=== PATIENT | female | born 1935 | race Hispanic/Latino ===

== ENCOUNTER → 2019-02-17 | Outpatient (CLI) | payer MEDICARE ==
[~2019-02-17] MED LIST: ASPIR 8181 MG PO; ATORVASTATIN CA20 MG PO; FERROUS SULFAT325 MG PO; HYDROCHLOROTHIA25 MG PO; JARDIANCE PO; LISINOPRIL10 MG PO; METFORMIN HCL500 MG PO; TRAJENTA PO
--- NOTE | 2019-02-17 16:21 | Diagnostic Imaging Report ---
History: Fell out of the bed, back pain Comparison studies: None Technique: Sagittal, coronal and axial T2 , sagittal T1 and IR, axial spin density oblique. Intravenous contrast: None Findings: Number of lumbar vertebral bodies:5 Alignment: Mild kyphotic deformity at the thoracolumbar junction. Preserved lordosis.No scoliosis. Soft tissues: Edematous changes at the right presacral space. Multiple cyst at the right kidney upper pole measuring up to 4 cm. Bilateral adrenal masses measuring up to 4 cm on the right side Paraspinal muscles: Fatty infiltration of the paraspinal musculature secondary to moderate atrophy more significant at the lumbosacral junction.. Lower thoracic cord:Normal in signal and morphology. The tip of the conus is at L1. Cauda equina: No masses. No arachnoiditis. Vertebrae: L1 wedge compression deformity with approximately 40-50% loss of anterior height, without retropulsion or edema, chronic in nature. Obliterated T11-12 intervertebral space with endplate edema.. No acute compression fractures, infection or neoplasm. Degenerative changes: L1-L2: Is degeneration with decreased intervertebral space. Diffuse disc bulge and mild facet hypertrophy results in no significant canal stenosis and moderate bilateral foraminal narrowing.. L2-L3: Disc degeneration with loss of T2 signal. Mild facet hypertrophy without significant canal stenosis or foraminal narrowing. L3-L4: Disc degeneration with loss of T2 signal. Mild bilateral facet hypertrophy and ligamentum flavum thickening results in no significant canal stenosis or foraminal narrowing. L4-L5: Disc degeneration with loss of T2 signal. Asymmetric left disc bulge, moderate facet hypertrophy and ligamentum flavum thickening results in mild canal stenosis and no significant foraminal narrowing. L5-S1: Disc degeneration with loss of T2 signal and decreased intervertebral space. Diffuse disc bulge and mild facet hypertrophy results in no significant canal or, mild right and moderate left foraminal narrowing. Additional findings: Mild degenerative changes of the sacroiliac joints. Edema signal with cortical irregularity at the right sacral ala. IMPRESSION: 1. Edema at the right sacral ala and surrounding soft tissues, concerning for an acute fracture. 2. Chronic compression fracture of L1 vertebral body. 3. Moderate bilateral degenerative foraminal narrowing at L1-L2. Moderate degenerative left foraminal narrowing at L5-S1. 4. No other significant (moderate or severe) canal stenosis or foraminal narrowing. 5. Bilateral adrenal masses, further evaluation with dedicated examination recommended. Signed by: DR Rhett Jones M.D. on 02/17/2019 4:18 PM
== END ==
LOC: MRI 10:41
PROVIDERS: ATTEND Internal Medicine
DX: M54.5 Low back pain (principal); W06.XXXA Fall from bed, initial encounter; Y93.84 Activity, sleeping
CPT/HCPCS: 72148

== ENCOUNTER 2020-08-21 12:59 | Inpatient (IN) | payer MEDICARE ==
[~2020-08-21] VITALS: Ht 162.6 cm; Wt 56.7 kg
[2020-08-21 13:39] LABS: BASOPHILS # (AUTO) 0.1 (0.0-0.1); BASOPHILS % 0.9 % (0.0-1.0); EOSINOPHILS # (AUTO) 0.1 (0.0-0.4); EOSINOPHILS % 2.1 % (0.0-6.0); HEMATOCRIT 30.8 % (34.2-44.1); LYMPHOCYTES # (AUTO) 0.9 (1.0-3.2); LYMPHOCYTES % 13.5 % (18.0-39.1); MEAN CORPUSCULAR HEMOGLOBIN 25.8 pg (28-32); MEAN CORPUSCULAR HGB CONC 29.2 g/dL (31-35); MEAN CORPUSCULAR VOLUME 88.3 fL (81-99); MONOCYTES # (AUTO) 0.5 (0.2-0.8); MONOCYTES % 7.5 % (4.4-11.3); NEUTROPHILS # (AUTO) 5.1 (2.1-6.9); NEUTROPHILS % 75.6 % (38.7-80.0); PLATELET COUNT 182 x10e3/uL (140-360); RED BLOOD COUNT 3.49 x10e6/uL (3.6-5.1); RED CELL DISTRIBUTION WIDTH 16.3 % (11.7-14.4)
[2020-08-21] MEDS ORDERED: DIATRIZOATE MEGL/DIATRIZOA SOD 30 ML BTL PO ONE (13:50)
[2020-08-21 13:56] LABS: INR 1.24; PROTHROMBIN TIME 16.4 seconds (11.9-14.5)
[2020-08-21 13:57] LABS: PARTIAL THROMBOPLASTIN TIME 28.8 seconds (23.8-35.5)
[2020-08-21 14:04] LABS: ALBUMIN 3.4 g/dL (3.5-5.0); ALBUMIN/GLOBULIN RATIO 1.2 (0.8-2.0); ANION GAP 13.9 mmol/L (8-16); CALCIUM 8.6 mg/dL (8.4-10.2); CREATININE, SERUM 1.3 mg/dL (0.57-1.11); POTASSIUM 4.9 mmol/L (3.5-5.1)
[2020-08-21 14:10] LABS: CREATINE KINASE MB 1.5 ng/mL (0-5.0)
[2020-08-21 14:24] LABS: CLARITY,URINE CLEAR (CLEAR); COLOR,URINE YELLOW (YELLOW); KETONES,URINE NEGATIVE (NEGATIVE); LEUKOCYTE ESTERASE ,URINE TRACE (NEGATIVE); NITRITE,URINE NEGATIVE (NEGATIVE); PROTEIN,URINE DIPSTICK 1+ (NEGATIVE); URINE UROBILINOGEN 1 mg/dL (0.2 - 1)
[2020-08-21 14:54] LABS: BACTERIA,URINE RARE /HPF; EPITHELIAL CELLS,URINE MODERATE /LPF; RBC,URINE 0-5 /HPF (0-5)
[2020-08-21] MEDS ORDERED: FUROSEMIDE INJ 10 MG/ML 4 ML VIAL IV ONE (18:15)
[2020-08-21] MEDS: CEFTRIAXONE SOD 1 GM in SODIUM CHLORIDE 0.9% 50ML 50 ML IV SCH (19:55)
[2020-08-21] MEDS: FUROSEMIDE INJ 10 MG/ML 4 ML VIAL IV SCH (19:55)
[2020-08-21 20:11] VITALS: BP 112/99
[2020-08-21 20:30] VITALS: BP 112/99
[2020-08-21 21:00] VITALS: BP 112/99
[2020-08-22] VITALS (8 sets, daily range): BP systolic 107–126; BP diastolic 56–85
[2020-08-22 01:25] LABS: CREATINE KINASE MB 1.3 ng/mL (0-5.0)
[2020-08-22] MEDS: FUROSEMIDE INJ 10 MG/ML 4 ML VIAL IV SCH ×3 (01:31→22:15)
[2020-08-22] MEDS ORDERED: OXYBUTYNIN CHLOR5 MG PO (04:18)
[2020-08-22] MEDS ORDERED: CARVEDILOL12.5 MG PO (04:18)
[2020-08-22] MEDS ORDERED: LASIX40 MG PO (04:18)
[2020-08-22 06:05] LABS: BASOPHILS # (AUTO) 0.1 (0.0-0.1); BASOPHILS % 0.9 % (0.0-1.0); EOSINOPHILS # (AUTO) 0.2 (0.0-0.4); EOSINOPHILS % 2.1 % (0.0-6.0); HEMATOCRIT 28.4 % (34.2-44.1); HEMOGLOBIN 8.6 g/dL (12.0-16.0); LYMPHOCYTES # (AUTO) 0.9 (1.0-3.2); LYMPHOCYTES % 12.7 % (18.0-39.1); MEAN CORPUSCULAR HEMOGLOBIN 26.6 pg (28-32); MEAN CORPUSCULAR HGB CONC 30.3 g/dL (31-35); MEAN CORPUSCULAR VOLUME 87.9 fL (81-99); MONOCYTES # (AUTO) 0.6 (0.2-0.8); MONOCYTES % 8.1 % (4.4-11.3); NEUTROPHILS # (AUTO) 5.3 (2.1-6.9); NEUTROPHILS % 75.9 % (38.7-80.0); PLATELET COUNT 173 x10e3/uL (140-360); RED BLOOD COUNT 3.23 x10e6/uL (3.6-5.1); RED CELL DISTRIBUTION WIDTH 16.2 % (11.7-14.4)
[2020-08-22 06:44] LABS: ALBUMIN 3.2 g/dL (3.5-5.0); ALBUMIN/GLOBULIN RATIO 1.1 (0.8-2.0); ALKALINE PHOSPHATASE 47 IU/L (40-150); ANION GAP 13.3 mmol/L (8-16); BLOOD UREA NITROGEN 35 mg/dL (7-26); BUN/CREATININE RATIO 27 (6-25); CALCIUM 8.5 mg/dL (8.4-10.2); CARBON DIOXIDE 23 mmol/L (22-29); CHLORIDE 111 mmol/L (98-107); EST GLOMERULAR FILTRATION RATE 39 ML/MIN (60-); GLUCOSE 137 mg/dL (74-118); POTASSIUM 4.3 mmol/L (3.5-5.1); SODIUM 143 mmol/L (136-145)
[2020-08-22 06:45] LABS: ALANINE AMINOTRANSFERASE < 6 IU/L (0-55)
[2020-08-22 07:14] LABS: CREATINE KINASE MB 1.3 ng/mL (0-5.0)
[2020-08-22] MEDS ORDERED: ACETAMINOPHEN 325 MG TAB PO PRN (10:00)
[2020-08-22] MEDS ORDERED: HYDRALAZINE HCL 20 MG/ML VIAL IV PRN (10:00)
[2020-08-22] MEDS ORDERED: ONDANSETRON HCL INJ 2MG/ML 2ML 2 MG/ML VIAL IV PRN (10:00)
[2020-08-22] MEDS ORDERED: DEXTROSE 50% SYRINGE 50 ML IV PRN (10:00)
[2020-08-22] MEDS: INSULIN LISPRO 100 UNIT/1 ML 3ML VIAL SQ SCH ×3 (11:30→21:00)
[2020-08-22 11:45] LABS: CREATINE KINASE MB 1.2 ng/mL (0-5.0)
[2020-08-22] MEDS ORDERED: SODIUM CHLORIDE 0.9% 50ML 50 ML ONE (16:31)
[2020-08-22] MEDS ORDERED: SODIUM CHLORIDE 0.9% 250ML 250 ML ONE (16:31)
[2020-08-22] MEDS ORDERED: CEFTRIAXONE SOD 1 GM VIAL ONE (16:31)
[2020-08-22 17:00] LABS: ANION GAP 12.4 mmol/L (8-16); CALCIUM 8.7 mg/dL (8.4-10.2); CREATININE, SERUM 1.41 mg/dL (0.57-1.11); POTASSIUM 4.4 mmol/L (3.5-5.1)
[2020-08-22] MEDS ORDERED: OXYBUTYNIN CHLORIDE 5 MG TAB PO SCH (17:00)
[2020-08-22] MEDS ORDERED: CARVEDILOL 12.5 MG TAB PO SCH (17:00)
[2020-08-22] MEDS: CEFTRIAXONE SOD 1 GM in SODIUM CHLORIDE 0.9% 50ML 50 ML IV SCH (17:46)
[2020-08-22] MEDS ORDERED: ATORVASTATIN 20 MG TAB PO SCH (21:00)
[2020-08-22] MEDS ORDERED: ASPIRIN 81 MG CHEW TAB PO SCH (21:00)
[2020-08-23] VITALS: BP 105/65
[2020-08-23 04:00] VITALS: BP 93/68
[2020-08-23 05:38] LABS: BASOPHILS # (AUTO) 0.1 (0.0-0.1); BASOPHILS % 0.9 % (0.0-1.0); EOSINOPHILS # (AUTO) 0.2 (0.0-0.4); EOSINOPHILS % 3.1 % (0.0-6.0); HEMATOCRIT 27.7 % (34.2-44.1); HEMOGLOBIN 8.4 g/dL (12.0-16.0); LYMPHOCYTES # (AUTO) 1.1 (1.0-3.2); LYMPHOCYTES % 20.2 % (18.0-39.1); MEAN CORPUSCULAR HEMOGLOBIN 26.5 pg (28-32); MEAN CORPUSCULAR HGB CONC 30.3 g/dL (31-35); MEAN CORPUSCULAR VOLUME 87.4 fL (81-99); MONOCYTES # (AUTO) 0.6 (0.2-0.8); MONOCYTES % 10.7 % (4.4-11.3); NEUTROPHILS # (AUTO) 3.5 (2.1-6.9); NEUTROPHILS % 64.9 % (38.7-80.0); PLATELET COUNT 165 x10e3/uL (140-360); RED BLOOD COUNT 3.17 x10e6/uL (3.6-5.1)
[2020-08-23 06:02] LABS: ALBUMIN 2.9 g/dL (3.5-5.0); ALKALINE PHOSPHATASE 54 IU/L (40-150); ANION GAP 13.1 mmol/L (8-16); BLOOD UREA NITROGEN 34 mg/dL (7-26); BUN/CREATININE RATIO 22 (6-25); CALCIUM 8.3 mg/dL (8.4-10.2); CARBON DIOXIDE 26 mmol/L (22-29); CHLORIDE 109 mmol/L (98-107); CREATININE, SERUM 1.53 mg/dL (0.57-1.11); EST GLOMERULAR FILTRATION RATE 32 ML/MIN (60-); GLUCOSE 124 mg/dL (74-118); POTASSIUM 4.1 mmol/L (3.5-5.1); SODIUM 144 mmol/L (136-145)
[2020-08-23 06:17] LABS: ALANINE AMINOTRANSFERASE < 6 IU/L (0-55)
[2020-08-23] MEDS: INSULIN LISPRO 100 UNIT/1 ML 3ML VIAL SQ SCH ×2 (07:30→11:30)
[2020-08-23 07:33] VITALS: BP 107/53
[2020-08-23 07:42] VITALS: BP 107/53
[2020-08-23] MEDS ORDERED: LISINOPRIL 10 MG TAB PO SCH (09:00)
[2020-08-23] MEDS ORDERED: FERROUS SULFATE 325 MG TAB PO SCH (09:00)
[2020-08-23] MEDS ORDERED: ASCORBIC ACID 500 MG TAB PO SCH (09:00)
[2020-08-23] MEDS: FUROSEMIDE INJ 10 MG/ML 4 ML VIAL IV SCH (10:30)
[2020-08-23 11:39] VITALS: BP 134/82
[2020-08-23] MEDS ORDERED: HEPARIN SOD (PORCINE) 1000 UNIT/ML 30ML ONE (11:51)
[2020-08-23] MEDS ORDERED: SODIUM CHLORIDE 0.9% 1000ML 1,000 ML ONE (11:52)
[2020-08-23] MEDS ORDERED: FENTANYL CITRATE/PF 100MCG/2 ML INJ ONE (11:52)
[2020-08-23] MEDS ORDERED: IOPAMIDOL 370 MG/ML 200 ML INFUS..BTL INJ ONE (11:52)
[2020-08-23] MEDS ORDERED: HEPARIN SOD/SOD CHLORIDE 2,000 ML ONE (11:52)
[2020-08-23] MEDS ORDERED: LIDOCAINE HCL 2% LOCAL 20 ML VIAL ONE (11:52)
[2020-08-23] MEDS ORDERED: MIDAZOLAM HCL 2 MG/2 ML VIAL ONE (11:52)
[2020-08-23] MEDS ORDERED: FLUMAZENIL 0.5MG/ 5ML VIAL ONE (12:09)
[2020-08-23] MEDS ORDERED: NALOXONE HCL INJ 0.4 MG/ML AMP ONE (12:09)
[2020-08-23] MEDS ORDERED: CEFUROXIME250 MG PO (12:54)
[2020-08-23] MEDS ORDERED: ACETAMINOPHEN325 M1 PO (12:54)
[2020-08-23] MEDS ORDERED: ASCORBIC ACID500 MG PO (12:54)
[2020-08-23] MEDS ORDERED: LISINOPRIL10 MG PO (12:54)
[2020-08-23] MEDS ORDERED: ONDANSETRON HCL 4 MG ORAL DISINTEGRATING TAB PO PRN (14:15)
== END 2020-08-23 16:22 | disposition home or self-care (01) | DRG 286 ==
LOC: ER 13:15 → ERHOLD 18:21 → MED/SURG2 20:17
PROVIDERS: ADMIT Internal Medicine; ATTEND Internal Medicine
PROC: 4A023N7 Measurement of Cardiac Sampling and Pressure, Left Heart, Percutaneous Approach (ICD-10-PCS; principal; 2020-08-23)
PROC: B2111ZZ Fluoroscopy of Multiple Coronary Arteries using Low Osmolar Contrast (ICD-10-PCS; 2020-08-23)
PROC: B2151ZZ Fluoroscopy of Left Heart using Low Osmolar Contrast (ICD-10-PCS; 2020-08-23)
DX: I13.0 Hypertensive heart and chronic kidney disease with heart failure and stage 1 through stage 4 chronic kidney disease, or unspecified chronic kidney disease (principal); I50.23 Acute on chronic systolic (congestive) heart failure; N39.0 Urinary tract infection, site not specified; I50.9 Heart failure, unspecified; I11.0 Hypertensive heart disease with heart failure; N18.9 Chronic kidney disease, unspecified; B96.1 Klebsiella pneumoniae [K. pneumoniae] as the cause of diseases classified elsewhere; Z86.718 Personal history of other venous thrombosis and embolism; Z79.01 Long term (current) use of anticoagulants; E78.5 Hyperlipidemia, unspecified
CPT/HCPCS: 36415; 71045; 74176; 80048; 80053; 81001; 82550; 82553; 82948; 83735; 83880; 84484; 85025; 85610; 85730; 87086; 87186; 93005; 93306; 93458; 93970; 99152; 99153; 99285; C1760; C1769; C1887; J0696; J1644; J1940; J2001; J2250; J2310; J3010; J7030; J7050; Q9967; U0002

== ENCOUNTER 2020-09-26 13:13 | Observation (INO) | payer MEDICARE ==
[~2020-09-26] VITALS: Ht 162.6 cm; Wt 56.7 kg
[~2020-09-26 13:13] MED LIST changes: +ACETAMINOPHEN325 M1 PO; +ASCORBIC ACID500 MG PO; +CARVEDILOL12.5 MG PO; +CEFUROXIME250 MG PO; +LASIX40 MG PO; +OXYBUTYNIN CHLOR5 MG PO
[2020-09-26 17:39] LABS: BASOPHILS # (AUTO) 0.1 (0.0-0.1); BASOPHILS % 1.1 % (0.0-1.0); EOSINOPHILS # (AUTO) 0.1 (0.0-0.4); EOSINOPHILS % 2.1 % (0.0-6.0); HEMATOCRIT 31.7 % (34.2-44.1); HEMOGLOBIN 9.5 g/dL (12.0-16.0); LYMPHOCYTES % 16.6 % (18.0-39.1); MEAN CORPUSCULAR HEMOGLOBIN 26.5 pg (28-32); MEAN CORPUSCULAR VOLUME 88.3 fL (81-99); MONOCYTES # (AUTO) 0.5 (0.2-0.8); MONOCYTES % 8.4 % (4.4-11.3); NEUTROPHILS # (AUTO) 4.5 (2.1-6.9); NEUTROPHILS % 71.6 % (38.7-80.0); PLATELET COUNT 151 x10e3/uL (140-360); RED BLOOD COUNT 3.59 x10e6/uL (3.6-5.1); RED CELL DISTRIBUTION WIDTH 19.9 % (11.7-14.4)
[2020-09-26 17:54] LABS: ALBUMIN 3.5 g/dL (3.5-5.0); ALBUMIN/GLOBULIN RATIO 1.1 (0.8-2.0); ANION GAP 14.8 mmol/L (8-16); CALCIUM 8.9 mg/dL (8.4-10.2); CREATININE, SERUM 1.44 mg/dL (0.57-1.11); POTASSIUM 3.8 mmol/L (3.5-5.1)
[2020-09-26 19:36] LABS: CREATINE KINASE MB 1.2 ng/mL (0-5.0)
[2020-09-26] MEDS ORDERED: ONDANSETRON HCL INJ 2MG/ML 2ML 2 MG/ML VIAL IV PRN (20:30)
[2020-09-26] MEDS ORDERED: TEMAZEPAM 7.5 MG CAP PO PRN (20:30)
[2020-09-26] MEDS ORDERED: HYDRALAZINE HCL 20 MG/ML VIAL IV PRN (20:30)
[2020-09-26] MEDS ORDERED: ACETAMINOPHEN 325 MG TAB PO PRN (20:30)
[2020-09-26] MEDS ORDERED: POLYETHYLENE GLYCOL 3350 17 GM PACK PO PRN (20:30)
[2020-09-26 21:00] VITALS: BP 138/71
[2020-09-26 21:06] VITALS: BP 138/71
[2020-09-26 21:09] VITALS: BP 138/71
[2020-09-26] MEDS ORDERED: METFORMIN HCL500 MG PO (22:38)
[2020-09-27 02:19] LABS: CREATINE KINASE MB 1.1 ng/mL (0-5.0)
[2020-09-27 04:32] VITALS: BP 123/70
[2020-09-27 04:53] LABS: BASOPHILS # (AUTO) 0.1 (0.0-0.1); BASOPHILS % 0.8 % (0.0-1.0); EOSINOPHILS # (AUTO) 0.2 (0.0-0.4); EOSINOPHILS % 3.7 % (0.0-6.0); HEMATOCRIT 30.8 % (34.2-44.1); HEMOGLOBIN 9.4 g/dL (12.0-16.0); LYMPHOCYTES % 15.9 % (18.0-39.1); MEAN CORPUSCULAR HEMOGLOBIN 26.8 pg (28-32); MEAN CORPUSCULAR HGB CONC 30.5 g/dL (31-35); MEAN CORPUSCULAR VOLUME 87.7 fL (81-99); MONOCYTES # (AUTO) 0.6 (0.2-0.8); MONOCYTES % 9.6 % (4.4-11.3); NEUTROPHILS # (AUTO) 4.3 (2.1-6.9); NEUTROPHILS % 69.8 % (38.7-80.0); PLATELET COUNT 153 x10e3/uL (140-360); RED BLOOD COUNT 3.51 x10e6/uL (3.6-5.1); RED CELL DISTRIBUTION WIDTH 19.9 % (11.7-14.4)
[2020-09-27 05:14] LABS: ANION GAP 14.6 mmol/L (8-16); CALCIUM 8.7 mg/dL (8.4-10.2); CHOL/HDL RATIO 2.9 (3.0-3.6); CREATININE, SERUM 1.28 mg/dL (0.57-1.11); MAGNESIUM 2.1 MG/DL (1.3-2.1); PHOSPHORUS 3.6 MG/DL (2.3-4.7); POTASSIUM 3.6 mmol/L (3.5-5.1)
[2020-09-27 05:33] LABS: THYROID STIMULATING HORMONE 1.949 uIU/mL (0.350-4.940)
[2020-09-27 06:35] LABS: CLARITY,URINE CLEAR (CLEAR); COLOR,URINE YELLOW (YELLOW); LEUKOCYTE ESTERASE ,URINE NEGATIVE (NEGATIVE)
[2020-09-27 06:36] LABS: KETONES,URINE NEGATIVE (NEGATIVE); NITRITE,URINE POSITIVE (NEGATIVE); PROTEIN,URINE DIPSTICK NEGATIVE (NEGATIVE); URINE UROBILINOGEN 0.2 mg/dL (0.2 - 1)
[2020-09-27 07:04] LABS: BACTERIA,URINE MANY /HPF; EPITHELIAL CELLS,URINE RARE /LPF
[2020-09-27 07:30] VITALS: BP 137/72
[2020-09-27 07:52] VITALS: BP 137/72
[2020-09-27] MEDS ORDERED: FERROUS SULFATE 325 MG TAB PO SCH (08:00)
[2020-09-27] MEDS: FUROSEMIDE INJ 10 MG/ML 4 ML VIAL IV SCH ×2 (08:13→16:37)
[2020-09-27] MEDS: CARVEDILOL 12.5 MG TAB PO SCH ×2 (08:13→16:37)
[2020-09-27] MEDS: DOCUSATE SODIUM 100 MG CAP PO SCH ×2 (08:13→16:37)
[2020-09-27] MEDS: OXYBUTYNIN CHLORIDE 5 MG TAB PO SCH ×2 (08:14→16:37)
[2020-09-27] MEDS ORDERED: TRAJENTA PO SCH (09:00)
[2020-09-27] MEDS ORDERED: FAMOTIDINE 20 MG TAB PO SCH (09:00)
[2020-09-27] MEDS ORDERED: METFORMIN HCL 500 MG TAB PO SCH (09:00)
[2020-09-27] MEDS ORDERED: ASCORBIC ACID 500 MG TAB PO SCH (09:00)
[2020-09-27] MEDS ORDERED: ONDANSETRON HCL 4 MG ORAL DISINTEGRATING TAB PO PRN (10:30)
[2020-09-27 11:00] VITALS: BP 131/67
[2020-09-27 12:49] LABS: CREATINE KINASE MB 1.2 ng/mL (0-5.0)
[2020-09-27] MEDS ORDERED: DIATRIZOATE MEGL/DIATRIZOA SOD 30 ML BTL PO ONE (15:23)
[2020-09-27 16:00] VITALS: BP 120/88
[2020-09-27] MEDS ORDERED: TEMAZEPAM 15 MG CAP PO PRN (17:45)
[2020-09-27] MEDS ORDERED: ASPIRIN 81 MG CHEW TAB PO SCH (21:00)
[2020-09-27] MEDS ORDERED: ATORVASTATIN 20 MG TAB PO SCH (21:00)
== END 2020-09-27 18:53 | disposition home or self-care (01) ==
LOC: ER 14:30 → ERHOLD 19:09 → IMCU 20:45 → MED/SURG 09-27 17:55
PROVIDERS: ADMIT Internal Medicine; ATTEND Internal Medicine
DX: I13.0 Hypertensive heart and chronic kidney disease with heart failure and stage 1 through stage 4 chronic kidney disease, or unspecified chronic kidney disease (principal); E11.22 Type 2 diabetes mellitus with diabetic chronic kidney disease; N18.30 Chronic kidney disease, stage 3 unspecified; I50.23 Acute on chronic systolic (congestive) heart failure; N17.9 Acute kidney failure, unspecified; E78.5 Hyperlipidemia, unspecified; E11.65 Type 2 diabetes mellitus with hyperglycemia; I25.10 Atherosclerotic heart disease of native coronary artery without angina pectoris; Z86.718 Personal history of other venous thrombosis and embolism; R11.2 Nausea with vomiting, unspecified; R10.9 Unspecified abdominal pain; Z20.822 Contact with and (suspected) exposure to COVID-19; Z79.82 Long term (current) use of aspirin; Z79.84 Long term (current) use of oral hypoglycemic drugs
CPT/HCPCS: 36415; 71045; 74018; 74176; 80048; 80053; 80061; 81001; 82550; 82553; 82948; 83036; 83690; 83735; 83880; 84100; 84443; 84484; 85025; 93005; 93306; 99284; G0378; J1940; U0002

== ENCOUNTER 2021-06-30 10:35 | Emergency (ER) | payer MEDICARE ==
[~2021-06-30] VITALS: Ht 162.6 cm; Wt 56.7 kg
[2021-06-30 11:11] LABS: BASOPHILS # (AUTO) 0.1 (0.0-0.1); BASOPHILS % 1.1 % (0.0-1.0); EOSINOPHILS # (AUTO) 0.1 (0.0-0.4); EOSINOPHILS % 1.7 % (0.0-6.0); HEMATOCRIT 35.6 % (34.2-44.1); HEMOGLOBIN 10.6 g/dL (12.0-16.0); LYMPHOCYTES # (AUTO) 0.6 (1.0-3.2); LYMPHOCYTES % 11.8 % (18.0-39.1); MEAN CORPUSCULAR HEMOGLOBIN 26.6 pg (28-32); MEAN CORPUSCULAR HGB CONC 29.8 g/dL (31-35); MEAN CORPUSCULAR VOLUME 89.2 fL (81-99); MONOCYTES # (AUTO) 0.4 (0.2-0.8); MONOCYTES % 6.8 % (4.4-11.3); NEUTROPHILS # (AUTO) 4.1 (2.1-6.9); NEUTROPHILS % 78.2 % (38.7-80.0); PLATELET COUNT 163 x10e3/uL (140-360); RED BLOOD COUNT 3.99 x10e6/uL (3.6-5.1); RED CELL DISTRIBUTION WIDTH 17.3 % (11.7-14.4)
[2021-06-30] MEDS: FUROSEMIDE INJ 10 MG/ML 4 ML VIAL IV NR (11:27)
[2021-06-30 11:32] LABS: ALBUMIN 3.3 g/dL (3.5-5.0); ALBUMIN/GLOBULIN RATIO 0.8 (0.8-2.0); ANION GAP 12.6 mmol/L (8-16); CALCIUM 9.2 mg/dL (8.4-10.2); CREATININE, SERUM 1.92 mg/dL (0.57-1.11); POTASSIUM 3.6 mmol/L (3.5-5.1)
== END 2021-06-30 14:19 | disposition home or self-care (01) ==
LOC: ER 10:56
DX: I11.0 Hypertensive heart disease with heart failure (principal); I50.9 Heart failure, unspecified; N28.9 Disorder of kidney and ureter, unspecified
CPT/HCPCS: 36415; 71045; 80053; 83880; 84484; 85025; 99284; J1940

== ENCOUNTER 2021-07-02 21:08 | Inpatient (IN) | payer MEDICARE ==
[~2021-07-02] VITALS: Ht 162.6 cm; Wt 56.7 kg
[2021-07-02 22:01] LABS: BASOPHILS # (AUTO) 0.1 (0.0-0.1); BASOPHILS % 1.4 % (0.0-1.0); EOSINOPHILS # (AUTO) 0.1 (0.0-0.4); EOSINOPHILS % 2.3 % (0.0-6.0); HEMATOCRIT 35.2 % (34.2-44.1); HEMOGLOBIN 10.6 g/dL (12.0-16.0); LYMPHOCYTES # (AUTO) 0.8 (1.0-3.2); LYMPHOCYTES % 15.6 % (18.0-39.1); MEAN CORPUSCULAR HEMOGLOBIN 27.1 pg (28-32); MEAN CORPUSCULAR HGB CONC 30.1 g/dL (31-35); MONOCYTES # (AUTO) 0.5 (0.2-0.8); MONOCYTES % 9.7 % (4.4-11.3); NEUTROPHILS # (AUTO) 3.4 (2.1-6.9); NEUTROPHILS % 70.6 % (38.7-80.0); PLATELET COUNT 159 x10e3/uL (140-360); RED BLOOD COUNT 3.91 x10e6/uL (3.6-5.1); RED CELL DISTRIBUTION WIDTH 17.5 % (11.7-14.4)
[2021-07-02 22:19] LABS: ALBUMIN 3.2 g/dL (3.5-5.0); ALBUMIN/GLOBULIN RATIO 0.8 (0.8-2.0); ANION GAP 13.1 mmol/L (8-16); CALCIUM 9.1 mg/dL (8.4-10.2); CREATININE, SERUM 2.01 mg/dL (0.57-1.11); POTASSIUM 4.1 mmol/L (3.5-5.1)
[2021-07-02 22:25] LABS: CREATINE KINASE MB 1.1 ng/mL (0-5.0)
[2021-07-02] MEDS ORDERED: ONDANSETRON HCL INJ 2MG/ML 2ML 2 MG/ML VIAL IV PRN (23:45)
[2021-07-02] MEDS ORDERED: DEXTROSE 50% SYRINGE 50 ML IV PRN (23:45)
[2021-07-03] VITALS: BP 126/68
[2021-07-03 04:00] VITALS: BP 118/60
[2021-07-03 05:48] LABS: BASOPHILS # (AUTO) 0.1 (0.0-0.1); BASOPHILS % 1.4 % (0.0-1.0); EOSINOPHILS # (AUTO) 0.1 (0.0-0.4); EOSINOPHILS % 2.6 % (0.0-6.0); HEMOGLOBIN 10.4 g/dL (12.0-16.0); LYMPHOCYTES # (AUTO) 0.8 (1.0-3.2); LYMPHOCYTES % 15.1 % (18.0-39.1); MEAN CORPUSCULAR HEMOGLOBIN 26.9 pg (28-32); MEAN CORPUSCULAR HGB CONC 30.6 g/dL (31-35); MEAN CORPUSCULAR VOLUME 88.1 fL (81-99); MONOCYTES # (AUTO) 0.5 (0.2-0.8); MONOCYTES % 10.2 % (4.4-11.3); NEUTROPHILS # (AUTO) 3.5 (2.1-6.9); NEUTROPHILS % 70.1 % (38.7-80.0); PLATELET COUNT 163 x10e3/uL (140-360); RED BLOOD COUNT 3.86 x10e6/uL (3.6-5.1); RED CELL DISTRIBUTION WIDTH 17.4 % (11.7-14.4)
[2021-07-03 06:02] LABS: INR 1.22; PROTHROMBIN TIME 16.4 seconds (11.9-14.5)
[2021-07-03 06:03] LABS: PARTIAL THROMBOPLASTIN TIME 29.8 seconds (23.8-35.5)
[2021-07-03 06:24] LABS: ALBUMIN 3.1 g/dL (3.5-5.0); ALBUMIN/GLOBULIN RATIO 0.8 (0.8-2.0); CALCIUM 8.9 mg/dL (8.4-10.2); CREATININE, SERUM 1.87 mg/dL (0.57-1.11)
[2021-07-03] MEDS: INSULIN REGULAR, HUMAN 100 UNIT/1 ML SQ SCH ×4 (07:30→21:00)
[2021-07-03] MEDS: CARVEDILOL 12.5 MG TAB PO SCH ×2 (09:06→17:29)
[2021-07-03] MEDS: OXYBUTYNIN CHLORIDE 5 MG TAB PO SCH ×2 (09:07→17:28)
[2021-07-03] MEDS: FUROSEMIDE 40 MG TAB PO SCH ×2 (09:07→17:28)
[2021-07-03 09:10] VITALS: BP 107/73
[2021-07-03 09:11] VITALS: BP 107/73
[2021-07-03 12:25] VITALS: BP 123/69
[2021-07-03] MEDS ORDERED: ALBUMIN 25% 12.5GM 50ML 150 ML IV ONE (15:59)
[2021-07-03 16:57] LABS: BODY FLUID TYPE PERITONEAL
[2021-07-03 16:58] LABS: BODY FLUID APPEARANCE TURBID; BODY FLUID COLOR STRAW
[2021-07-03 18:10] LABS: RBC,BODY FLUID 4000 cells/uL; WBC,BODY FLUID 801 cells/uL
[2021-07-03 20:00] VITALS: BP 107/62
[2021-07-03 20:46] LABS: LYMPHOCYTES,BODY FLUID 41 %; MONO/MACROPHG,BODY FLUID 19 %; OTHER CELLS,BODY FLUID 40 %
[2021-07-03 23:08] LABS: % IRON SATURATION 7 % (15-50); IRON 33 ug/dL (50-170); TOTAL IRON BINDING CAPACITY 483 ug/dL (261-478); TRANSFERRIN 345 mg/dL (180-382)
[2021-07-04] VITALS (9 sets, daily range): BP systolic 94–103; BP diastolic 48–83
[2021-07-04] MEDS ORDERED: CYANOCOBALAMIN INJ 1,000 MCG/ML VIAL IM ONE
[2021-07-04 06:12] LABS: BASOPHILS % 0.9 % (0.0-1.0); EOSINOPHILS # (AUTO) 0.1 (0.0-0.4); EOSINOPHILS % 1.6 % (0.0-6.0); HEMATOCRIT 34.3 % (34.2-44.1); HEMOGLOBIN 10.6 g/dL (12.0-16.0); LYMPHOCYTES # (AUTO) 0.7 (1.0-3.2); LYMPHOCYTES % 16.7 % (18.0-39.1); MEAN CORPUSCULAR HGB CONC 30.9 g/dL (31-35); MEAN CORPUSCULAR VOLUME 87.5 fL (81-99); MONOCYTES # (AUTO) 0.5 (0.2-0.8); MONOCYTES % 11.1 % (4.4-11.3); NEUTROPHILS % 69.5 % (38.7-80.0); PLATELET COUNT 152 x10e3/uL (140-360); RED BLOOD COUNT 3.92 x10e6/uL (3.6-5.1); RED CELL DISTRIBUTION WIDTH 17.4 % (11.7-14.4)
[2021-07-04 06:33] LABS: ANION GAP 7.9 mmol/L (8-16); CALCIUM 8.5 mg/dL (8.4-10.2); CREATININE, SERUM 1.58 mg/dL (0.57-1.11); MAGNESIUM 2.6 MG/DL (1.3-2.1); PHOSPHORUS 3.4 MG/DL (2.3-4.7); POTASSIUM 3.9 mmol/L (3.5-5.1)
[2021-07-04] MEDS: INSULIN REGULAR, HUMAN 100 UNIT/1 ML SQ SCH ×4 (07:30→20:40)
[2021-07-04] MEDS ORDERED: SODIUM CHLORIDE 0.9% 250ML 250 ML ONE (08:10)
[2021-07-04] MEDS: CARVEDILOL 12.5 MG TAB PO SCH ×2 (09:00→17:00)
[2021-07-04] MEDS: IRON SUCROSE 100 MG in SODIUM CHLORIDE 0.9% 100 ML 100 ML IV SCH (10:01)
[2021-07-04] MEDS: CYANOCOBALAMIN INJ 1,000 MCG/ML VIAL IM SCH (10:01)
[2021-07-04] MEDS: OXYBUTYNIN CHLORIDE 5 MG TAB PO SCH ×2 (10:02→17:01)
[2021-07-04] MEDS: FUROSEMIDE 40 MG TAB PO SCH (10:02)
[2021-07-04] MEDS ORDERED: DEXTROSE 5% 1,000 ML IV SCH (11:30)
[2021-07-04 15:23] LABS: NEUTROPHILS,BODY FLUID 2 %
[2021-07-05] VITALS (8 sets, daily range): BP systolic 89–139; BP diastolic 53–73
[2021-07-05] MEDS: DEXTROSE 5% 1,000 ML IV SCH ×2 (00:35→10:53)
[2021-07-05 05:03] LABS: BASOPHILS # (AUTO) 0.1 (0.0-0.1); BASOPHILS % 1.3 % (0.0-1.0); EOSINOPHILS # (AUTO) 0.1 (0.0-0.4); EOSINOPHILS % 2.2 % (0.0-6.0); HEMATOCRIT 33.9 % (34.2-44.1); HEMOGLOBIN 10.2 g/dL (12.0-16.0); LYMPHOCYTES # (AUTO) 0.8 (1.0-3.2); LYMPHOCYTES % 17.4 % (18.0-39.1); MEAN CORPUSCULAR HEMOGLOBIN 26.6 pg (28-32); MEAN CORPUSCULAR HGB CONC 30.1 g/dL (31-35); MEAN CORPUSCULAR VOLUME 88.5 fL (81-99); MONOCYTES # (AUTO) 0.5 (0.2-0.8); MONOCYTES % 10.7 % (4.4-11.3); NEUTROPHILS # (AUTO) 3.1 (2.1-6.9); NEUTROPHILS % 68.2 % (38.7-80.0); PLATELET COUNT 156 x10e3/uL (140-360); RED BLOOD COUNT 3.83 x10e6/uL (3.6-5.1); RED CELL DISTRIBUTION WIDTH 17.2 % (11.7-14.4)
[2021-07-05 05:16] LABS: ALBUMIN 2.7 g/dL (3.5-5.0); ANION GAP 8.9 mmol/L (8-16); CALCIUM 8.3 mg/dL (8.4-10.2); CREATININE, SERUM 1.48 mg/dL (0.57-1.11); POTASSIUM 3.9 mmol/L (3.5-5.1)
[2021-07-05 06:31] LABS: MAGNESIUM 2.2 MG/DL (1.3-2.1); PHOSPHORUS 3.4 MG/DL (2.3-4.7)
[2021-07-05] MEDS: CYANOCOBALAMIN INJ 1,000 MCG/ML VIAL IM SCH (07:59)
[2021-07-05] MEDS: OXYBUTYNIN CHLORIDE 5 MG TAB PO SCH ×2 (07:59→17:42)
[2021-07-05] MEDS: IRON SUCROSE 100 MG in SODIUM CHLORIDE 0.9% 100 ML 100 ML IV SCH (07:59)
[2021-07-05] MEDS: CARVEDILOL 12.5 MG TAB PO SCH ×2 (09:00→17:42)
[2021-07-05] MEDS: INSULIN REGULAR, HUMAN 100 UNIT/1 ML SQ SCH ×4 (09:31→21:00)
[2021-07-05] MEDS ORDERED: ALBUMIN 25% 25GM 100ML 0.25 GM/ML BTL IV ONE (09:45)
[2021-07-05] MEDS ORDERED: ALBUMIN 25% 12.5GM 50ML 200 ML IV ONE (11:00)
[2021-07-05] MEDS: HYDROCODONE/APAP 5MG-325MG TAB PO PRN (22:19)
[2021-07-06] VITALS (8 sets, daily range): BP systolic 95–109; BP diastolic 52–71
[2021-07-06 05:03] LABS: BASOPHILS # (AUTO) 0.1 (0.0-0.1); BASOPHILS % 1.3 % (0.0-1.0); EOSINOPHILS # (AUTO) 0.1 (0.0-0.4); EOSINOPHILS % 2.9 % (0.0-6.0); HEMATOCRIT 33.6 % (34.2-44.1); HEMOGLOBIN 10.3 g/dL (12.0-16.0); LYMPHOCYTES # (AUTO) 0.7 (1.0-3.2); LYMPHOCYTES % 16.1 % (18.0-39.1); MEAN CORPUSCULAR HEMOGLOBIN 27.1 pg (28-32); MEAN CORPUSCULAR HGB CONC 30.7 g/dL (31-35); MEAN CORPUSCULAR VOLUME 88.4 fL (81-99); MONOCYTES # (AUTO) 0.6 (0.2-0.8); MONOCYTES % 12.6 % (4.4-11.3); NEUTROPHILS % 66.9 % (38.7-80.0); PLATELET COUNT 154 x10e3/uL (140-360); RED CELL DISTRIBUTION WIDTH 17.3 % (11.7-14.4)
[2021-07-06 05:18] LABS: ALBUMIN 3.2 g/dL (3.5-5.0); ALBUMIN/GLOBULIN RATIO 1.2 (0.8-2.0); ALKALINE PHOSPHATASE 59 IU/L (40-150); ANION GAP 9.2 mmol/L (8-16); BLOOD UREA NITROGEN 34 mg/dL (7-26); BUN/CREATININE RATIO 22 (6-25); CALCIUM 8.6 mg/dL (8.4-10.2); CARBON DIOXIDE 31 mmol/L (22-29); CHLORIDE 101 mmol/L (98-107); CREATININE, SERUM 1.53 mg/dL (0.57-1.11); EST GLOMERULAR FILTRATION RATE 32 ML/MIN (60-); GLUCOSE 147 mg/dL (74-118); POTASSIUM 4.2 mmol/L (3.5-5.1); SODIUM 137 mmol/L (136-145)
[2021-07-06 05:41] LABS: ALANINE AMINOTRANSFERASE < 6 IU/L (0-55)
[2021-07-06] MEDS: INSULIN REGULAR, HUMAN 100 UNIT/1 ML SQ SCH ×4 (07:30→21:00)
[2021-07-06] MEDS: FERROUS SULFATE 325 MG TAB PO SCH ×2 (09:46→17:18)
[2021-07-06] MEDS: IRON SUCROSE 100 MG in SODIUM CHLORIDE 0.9% 100 ML 100 ML IV SCH (09:47)
[2021-07-06] MEDS: OXYBUTYNIN CHLORIDE 5 MG TAB PO SCH ×2 (09:47→17:18)
[2021-07-06] MEDS: CYANOCOBALAMIN INJ 1,000 MCG/ML VIAL IM SCH (09:47)
[2021-07-06] MEDS: CARVEDILOL 3.125 MG TAB PO SCH ×2 (09:48→17:18)
[2021-07-06] MEDS ORDERED: SODIUM CHLORIDE 0.9% 250ML 250 ML ONE (09:51)
[2021-07-06] MEDS ORDERED: LACTULOSE SYRUP 20 GM/30 ML UDC PO PRN (15:30)
[2021-07-06 18:53] LABS: CREATININE,URINE RANDOM 46.35 mg/dL (47-110); TOTAL PROTEIN, URINE 12.9 mg/dL (1-14)
[2021-07-07] VITALS (8 sets, daily range): BP systolic 99–120; BP diastolic 53–82
[2021-07-07] MEDS: HYDROCODONE/APAP 5MG-325MG TAB PO PRN (06:34)
[2021-07-07] MEDS: INSULIN REGULAR, HUMAN 100 UNIT/1 ML SQ SCH ×4 (07:30→20:53)
[2021-07-07] MEDS: IRON SUCROSE 100 MG in SODIUM CHLORIDE 0.9% 100 ML 100 ML IV SCH (09:10)
[2021-07-07] MEDS: CYANOCOBALAMIN INJ 1,000 MCG/ML VIAL IM SCH (09:10)
[2021-07-07] MEDS: FERROUS SULFATE 325 MG TAB PO SCH ×2 (09:10→16:58)
[2021-07-07] MEDS: OXYBUTYNIN CHLORIDE 5 MG TAB PO SCH ×2 (09:11→16:58)
[2021-07-07] MEDS: CARVEDILOL 3.125 MG TAB PO SCH ×2 (09:11→16:58)
[2021-07-07] MEDS: SPIRONOLACTONE 25 MG TAB PO SCH (09:11)
[2021-07-07] MEDS: FUROSEMIDE 20 MG TAB PO SCH (09:13)
[2021-07-08] VITALS (8 sets, daily range): BP systolic 103–127; BP diastolic 52–75
[2021-07-08 06:49] LABS: BASOPHILS # (AUTO) 0.1 (0.0-0.1); BASOPHILS % 1.2 % (0.0-1.0); EOSINOPHILS # (AUTO) 0.1 (0.0-0.4); EOSINOPHILS % 2.2 % (0.0-6.0); HEMATOCRIT 35.6 % (34.2-44.1); HEMOGLOBIN 10.8 g/dL (12.0-16.0); MEAN CORPUSCULAR HEMOGLOBIN 27.1 pg (28-32); MEAN CORPUSCULAR HGB CONC 30.3 g/dL (31-35); MEAN CORPUSCULAR VOLUME 89.2 fL (81-99); MONOCYTES # (AUTO) 0.7 (0.2-0.8); MONOCYTES % 10.2 % (4.4-11.3); NEUTROPHILS # (AUTO) 4.6 (2.1-6.9); NEUTROPHILS % 71.1 % (38.7-80.0); PLATELET COUNT 163 x10e3/uL (140-360); RED BLOOD COUNT 3.99 x10e6/uL (3.6-5.1); RED CELL DISTRIBUTION WIDTH 17.6 % (11.7-14.4)
[2021-07-08 07:13] LABS: ALBUMIN 3.1 g/dL (3.5-5.0); ALBUMIN/GLOBULIN RATIO 1.1 (0.8-2.0); ALKALINE PHOSPHATASE 66 IU/L (40-150); ANION GAP 15.4 mmol/L (8-16); BLOOD UREA NITROGEN 35 mg/dL (7-26); BUN/CREATININE RATIO 22 (6-25); CALCIUM 9.1 mg/dL (8.4-10.2); CARBON DIOXIDE 23 mmol/L (22-29); CHLORIDE 104 mmol/L (98-107); CREATININE, SERUM 1.57 mg/dL (0.57-1.11); EST GLOMERULAR FILTRATION RATE 31 ML/MIN (60-); GLUCOSE 141 mg/dL (74-118); POTASSIUM 4.4 mmol/L (3.5-5.1); SODIUM 138 mmol/L (136-145)
[2021-07-08 07:14] LABS: ALANINE AMINOTRANSFERASE < 6 IU/L (0-55)
[2021-07-08] MEDS: INSULIN REGULAR, HUMAN 100 UNIT/1 ML SQ SCH ×4 (09:03→21:20)
[2021-07-08] MEDS: FERROUS SULFATE 325 MG TAB PO SCH ×2 (09:04→17:37)
[2021-07-08] MEDS: SPIRONOLACTONE 25 MG TAB PO SCH (09:04)
[2021-07-08] MEDS: IRON SUCROSE 100 MG in SODIUM CHLORIDE 0.9% 100 ML 100 ML IV SCH (09:04)
[2021-07-08] MEDS: CYANOCOBALAMIN INJ 1,000 MCG/ML VIAL IM SCH (09:04)
[2021-07-08] MEDS: CARVEDILOL 3.125 MG TAB PO SCH ×2 (09:05→17:00)
[2021-07-08] MEDS: FUROSEMIDE 20 MG TAB PO SCH (09:09)
[2021-07-08] MEDS: OXYBUTYNIN CHLORIDE 5 MG TAB PO SCH ×2 (09:09→17:37)
[2021-07-09 00:21] VITALS: BP 103/62
[2021-07-09 04:00] VITALS: BP 126/82
[2021-07-09] MEDS: INSULIN REGULAR, HUMAN 100 UNIT/1 ML SQ SCH ×3 (07:30→17:33)
[2021-07-09 07:47] VITALS: BP 117/58
[2021-07-09] MEDS: CYANOCOBALAMIN INJ 1,000 MCG/ML VIAL IM SCH (08:25)
[2021-07-09] MEDS: SPIRONOLACTONE 25 MG TAB PO SCH (08:25)
[2021-07-09] MEDS: OXYBUTYNIN CHLORIDE 5 MG TAB PO SCH ×2 (08:25→16:19)
[2021-07-09] MEDS: CARVEDILOL 3.125 MG TAB PO SCH ×2 (08:25→16:19)
[2021-07-09] MEDS: FUROSEMIDE 20 MG TAB PO SCH (08:25)
[2021-07-09] MEDS: FERROUS SULFATE 325 MG TAB PO SCH ×2 (08:25→16:19)
[2021-07-09] MEDS: IRON SUCROSE 100 MG in SODIUM CHLORIDE 0.9% 100 ML 100 ML IV SCH (08:25)
[2021-07-09 11:26] VITALS: BP 119/71
[2021-07-09 15:44] VITALS: BP 112/63
[2021-07-09 17:34] VITALS: BP 112/63
[2021-07-09] MEDS ORDERED: COREG3.125 MG PO (18:03)
[2021-07-09] MEDS ORDERED: Ferrous Sulfate PO (18:03)
[2021-07-09] MEDS ORDERED: ALDACTONE25 MG PO (18:03)
[2021-07-09] MEDS ORDERED: FUROSEMIDE20 MG PO (18:03)
== END 2021-07-09 19:08 | disposition home or self-care (01) | DRG 948 ==
LOC: ER 21:41 → ERHOLD 23:45 → MED/SURG 07-03 00:05 → OBSVTOIN 07-04 11:16
PROVIDERS: ADMIT Internal Medicine; ATTEND Internal Medicine
PROC: 0W9G3ZZ Drainage of Peritoneal Cavity, Percutaneous Approach (ICD-10-PCS; principal; 2021-07-03)
PROC: 0W9G3ZZ Drainage of Peritoneal Cavity, Percutaneous Approach (ICD-10-PCS; 2021-07-07)
DX: R18.8 Other ascites (principal); I13.0 Hypertensive heart and chronic kidney disease with heart failure and stage 1 through stage 4 chronic kidney disease, or unspecified chronic kidney disease; I50.22 Chronic systolic (congestive) heart failure; N17.9 Acute kidney failure, unspecified; C78.6 Secondary malignant neoplasm of retroperitoneum and peritoneum; E11.22 Type 2 diabetes mellitus with diabetic chronic kidney disease; Z96.641 Presence of right artificial hip joint; N18.9 Chronic kidney disease, unspecified; E78.5 Hyperlipidemia, unspecified; K80.20 Calculus of gallbladder without cholecystitis without obstruction; D35.02 Benign neoplasm of left adrenal gland; D35.01 Benign neoplasm of right adrenal gland; N28.1 Cyst of kidney, acquired; D50.9 Iron deficiency anemia, unspecified; D51.9 Vitamin B12 deficiency anemia, unspecified; E88.09 Other disorders of plasma-protein metabolism, not elsewhere classified; N18.32 Chronic kidney disease, stage 3b; D39.12 Neoplasm of uncertain behavior of left ovary; D39.11 Neoplasm of uncertain behavior of right ovary; Z87.440 Personal history of urinary (tract) infections; Z82.49 Family history of ischemic heart disease and other diseases of the circulatory system; Z86.718 Personal history of other venous thrombosis and embolism; Z20.822 Contact with and (suspected) exposure to COVID-19
CPT/HCPCS: 36415; 49083; 71045; 72195; 74018; 74176; 74470; 76770; 76830; 76856; 80048; 80053; 82040; 82378; 82550; 82553; 82570; 82607; 82746; 82948; 83540; 83735; 83880; 84100; 84156; 84157; 84300; 84466; 84484; 84550; 85025; 85045; 85610; 85730; 86304; 87070; 87205; 88112; 88305; 89051; 93005; 93306; 94799; 96372; 97139; 99251; 99284; C1729; G0378; J1756; J1817; J3420; J7050; J7070; U0002

== ENCOUNTER 2021-08-09 19:13 | Inpatient (IN) | payer MEDICARE ==
[~2021-08-09] VITALS: Ht 162.6 cm; Wt 56.7 kg
[~2021-08-09 19:13] MED LIST changes: +ALDACTONE25 MG PO; +COREG3.125 MG PO; +FUROSEMIDE20 MG PO; +Ferrous Sulfate PO
[2021-08-09 19:55] LABS: BASOPHILS # (AUTO) 0.1 (0.0-0.1); BASOPHILS % 1.2 % (0.0-1.0); EOSINOPHILS # (AUTO) 0.1 (0.0-0.4); EOSINOPHILS % 2.2 % (0.0-6.0); HEMATOCRIT 37.2 % (34.2-44.1); HEMOGLOBIN 11.3 g/dL (12.0-16.0); LYMPHOCYTES # (AUTO) 0.8 (1.0-3.2); MEAN CORPUSCULAR HEMOGLOBIN 28.3 pg (28-32); MEAN CORPUSCULAR HGB CONC 30.4 g/dL (31-35); MEAN CORPUSCULAR VOLUME 93.2 fL (81-99); MONOCYTES # (AUTO) 0.4 (0.2-0.8); MONOCYTES % 7.4 % (4.4-11.3); NEUTROPHILS # (AUTO) 4.4 (2.1-6.9); NEUTROPHILS % 74.9 % (38.7-80.0); PLATELET COUNT 164 x10e3/uL (140-360); RED BLOOD COUNT 3.99 x10e6/uL (3.6-5.1); RED CELL DISTRIBUTION WIDTH 18.6 % (11.7-14.4)
[2021-08-09 20:04] LABS: CLARITY,URINE SL CLOUDY (CLEAR); COLOR,URINE YELLOW (YELLOW)
[2021-08-09 20:05] LABS: KETONES,URINE NEGATIVE (NEGATIVE); LEUKOCYTE ESTERASE ,URINE TRACE (NEGATIVE); NITRITE,URINE NEGATIVE (NEGATIVE); PROTEIN,URINE DIPSTICK TRACE (NEGATIVE); URINE UROBILINOGEN 0.2 mg/dL (0.2 - 1)
[2021-08-09 20:08] LABS: BACTERIA,URINE MANY /HPF; TRANSITIONAL EPI CELLS,URINE FEW
[2021-08-09 20:09] LABS: INR 1.14; PROTHROMBIN TIME 15.4 seconds (11.9-14.5)
[2021-08-09 20:16] LABS: ALBUMIN 3.2 g/dL (3.5-5.0); ALBUMIN/GLOBULIN RATIO 0.9 (0.8-2.0); CALCIUM 9.1 mg/dL (8.4-10.2); CREATININE, SERUM 1.47 mg/dL (0.57-1.11)
[2021-08-09 20:17] LABS: AMYLASE 19 U/L (25-125); LIPASE 20 U/L (8-78)
[2021-08-09] MEDS ORDERED: ONDANSETRON HCL INJ 2MG/ML 2ML 2 MG/ML VIAL IV PRN (22:15)
[2021-08-09] MEDS ORDERED: SODIUM CHLORIDE FLUSH 10 ML SYR INJ PRN (22:15)
[2021-08-09] MEDS ORDERED: DEXTROSE 50% SYRINGE 50 ML IV PRN (22:15)
[2021-08-09] MEDS: Morphine 2mg Syringe 2 MG/ML SYR IV PRN (22:38)
[2021-08-09 23:00] VITALS: BP 106/61
[2021-08-09] MEDS: INSULIN REGULAR, HUMAN 100 UNIT/1 ML SQ SCH (23:55)
[2021-08-10] VITALS (9 sets, daily range): BP systolic 101–143; BP diastolic 61–77
[2021-08-10 05:27] LABS: BASOPHILS # (AUTO) 0.1 (0.0-0.1); BASOPHILS % 1.2 % (0.0-1.0); EOSINOPHILS # (AUTO) 0.2 (0.0-0.4); EOSINOPHILS % 3.1 % (0.0-6.0); HEMATOCRIT 36.1 % (34.2-44.1); HEMOGLOBIN 11.1 g/dL (12.0-16.0); LYMPHOCYTES # (AUTO) 1.2 (1.0-3.2); LYMPHOCYTES % 20.1 % (18.0-39.1); MEAN CORPUSCULAR HEMOGLOBIN 28.7 pg (28-32); MEAN CORPUSCULAR HGB CONC 30.7 g/dL (31-35); MEAN CORPUSCULAR VOLUME 93.3 fL (81-99); MONOCYTES # (AUTO) 0.6 (0.2-0.8); MONOCYTES % 10.4 % (4.4-11.3); NEUTROPHILS # (AUTO) 3.8 (2.1-6.9); NEUTROPHILS % 64.9 % (38.7-80.0); PLATELET COUNT 173 x10e3/uL (140-360); RED BLOOD COUNT 3.87 x10e6/uL (3.6-5.1); RED CELL DISTRIBUTION WIDTH 18.6 % (11.7-14.4)
[2021-08-10 05:54] LABS: ALBUMIN/GLOBULIN RATIO 0.8 (0.8-2.0); ANION GAP 11.6 mmol/L (8-16); CALCIUM 9.1 mg/dL (8.4-10.2); POTASSIUM 4.6 mmol/L (3.5-5.1)
[2021-08-10 06:14] LABS: CREATININE, SERUM 1.34 mg/dL (0.57-1.11)
[2021-08-10] MEDS ORDERED: ALBUMIN 25% 12.5GM 50ML 150 ML IV ONE (10:12)
[2021-08-10] MEDS ORDERED: ALBUMIN 25% 12.5GM 50ML 50 ML IV ONE (10:59)
[2021-08-10] MEDS ORDERED: SPIRONOLACTONE25 MG PO (12:28)
[2021-08-10 13:00] LABS: BODY FLUID TYPE PERITONEAL
[2021-08-10 13:01] LABS: BODY FLUID APPEARANCE SL.CLOUDY; BODY FLUID COLOR YELLOW
[2021-08-10 13:02] LABS: RBC,BODY FLUID 6000 cells/uL; WBC,BODY FLUID 617 cells/uL
[2021-08-10 13:39] LABS: LYMPHOCYTES,BODY FLUID 49 %; MONO/MACROPHG,BODY FLUID 31 %; NEUTROPHILS,BODY FLUID 20 %
[2021-08-10] MEDS: CARVEDILOL 3.125 MG TAB PO SCH (16:50)
[2021-08-10] MEDS: OXYBUTYNIN CHLORIDE 5 MG TAB PO SCH (16:50)
[2021-08-11] VITALS (9 sets, daily range): BP systolic 97–133; BP diastolic 59–86
[2021-08-11 05:03] LABS: BASOPHILS # (AUTO) 0.1 (0.0-0.1); BASOPHILS % 1.1 % (0.0-1.0); EOSINOPHILS # (AUTO) 0.1 (0.0-0.4); EOSINOPHILS % 2.4 % (0.0-6.0); HEMATOCRIT 36.1 % (34.2-44.1); HEMOGLOBIN 11.3 g/dL (12.0-16.0); LYMPHOCYTES % 18.8 % (18.0-39.1); MEAN CORPUSCULAR HEMOGLOBIN 28.6 pg (28-32); MEAN CORPUSCULAR HGB CONC 31.3 g/dL (31-35); MEAN CORPUSCULAR VOLUME 91.4 fL (81-99); MONOCYTES # (AUTO) 0.5 (0.2-0.8); MONOCYTES % 8.6 % (4.4-11.3); NEUTROPHILS # (AUTO) 3.7 (2.1-6.9); NEUTROPHILS % 68.7 % (38.7-80.0); PLATELET COUNT 162 x10e3/uL (140-360); RED BLOOD COUNT 3.95 x10e6/uL (3.6-5.1); RED CELL DISTRIBUTION WIDTH 18.6 % (11.7-14.4)
[2021-08-11 05:42] LABS: ALBUMIN 2.9 g/dL (3.5-5.0); ALBUMIN/GLOBULIN RATIO 1.1 (0.8-2.0); ALKALINE PHOSPHATASE 68 IU/L (40-150); ANION GAP 13.7 mmol/L (8-16); BLOOD UREA NITROGEN 28 mg/dL (7-26); BUN/CREATININE RATIO 24 (6-25); CALCIUM 8.6 mg/dL (8.4-10.2); CARBON DIOXIDE 19 mmol/L (22-29); CHLORIDE 114 mmol/L (98-107); CREATININE, SERUM 1.19 mg/dL (0.57-1.11); EST GLOMERULAR FILTRATION RATE 43 ML/MIN (60-); GLUCOSE 161 mg/dL (74-118); POTASSIUM 4.7 mmol/L (3.5-5.1); SODIUM 142 mmol/L (136-145)
[2021-08-11 05:50] LABS: ALANINE AMINOTRANSFERASE < 6 IU/L (0-55)
[2021-08-11] MEDS: INSULIN REGULAR, HUMAN 100 UNIT/1 ML SQ SCH ×4 (07:30→20:46)
[2021-08-11] MEDS: SPIRONOLACTONE 25 MG TAB PO SCH (08:52)
[2021-08-11] MEDS: OXYBUTYNIN CHLORIDE 5 MG TAB PO SCH ×2 (08:53→17:23)
[2021-08-11] MEDS: CARVEDILOL 3.125 MG TAB PO SCH ×2 (08:53→17:23)
[2021-08-11] MEDS: FUROSEMIDE 20 MG TAB PO SCH (08:53)
[2021-08-11] MEDS: Morphine 2mg Syringe 2 MG/ML SYR IV PRN ×2 (09:26→20:51)
[2021-08-11] MEDS: CEFTRIAXONE 1 GM in SODIUM CHLORIDE 0.9% 50ML 50 ML IV SCH (20:46)
[2021-08-11] MEDS ORDERED: SODIUM CHLORIDE 0.9% 500ML 500 ML ONE (21:09)
[2021-08-12] VITALS (8 sets, daily range): BP systolic 99–132; BP diastolic 52–75
[2021-08-12 06:27] LABS: BASOPHILS # (AUTO) 0.1 (0.0-0.1); BASOPHILS % 1.4 % (0.0-1.0); EOSINOPHILS # (AUTO) 0.2 (0.0-0.4); EOSINOPHILS % 3.9 % (0.0-6.0); HEMATOCRIT 36.6 % (34.2-44.1); LYMPHOCYTES # (AUTO) 0.8 (1.0-3.2); LYMPHOCYTES % 16.7 % (18.0-39.1); MEAN CORPUSCULAR HEMOGLOBIN 28.2 pg (28-32); MEAN CORPUSCULAR HGB CONC 30.1 g/dL (31-35); MEAN CORPUSCULAR VOLUME 93.8 fL (81-99); MONOCYTES # (AUTO) 0.5 (0.2-0.8); MONOCYTES % 9.5 % (4.4-11.3); NEUTROPHILS # (AUTO) 3.3 (2.1-6.9); NEUTROPHILS % 68.5 % (38.7-80.0); PLATELET COUNT 155 x10e3/uL (140-360); RED CELL DISTRIBUTION WIDTH 18.9 % (11.7-14.4)
[2021-08-12 06:52] LABS: ALBUMIN/GLOBULIN RATIO 1.1 (0.8-2.0); ANION GAP 13.5 mmol/L (8-16); CALCIUM 8.2 mg/dL (8.4-10.2); CREATININE, SERUM 1.3 mg/dL (0.57-1.11); POTASSIUM 4.5 mmol/L (3.5-5.1)
[2021-08-12] MEDS: INSULIN REGULAR, HUMAN 100 UNIT/1 ML SQ SCH ×4 (07:30→20:30)
[2021-08-12] MEDS: CARVEDILOL 3.125 MG TAB PO SCH ×2 (09:05→17:00)
[2021-08-12] MEDS: SPIRONOLACTONE 25 MG TAB PO SCH (09:05)
[2021-08-12] MEDS: OXYBUTYNIN CHLORIDE 5 MG TAB PO SCH ×2 (09:06→17:00)
[2021-08-12] MEDS: FUROSEMIDE 20 MG TAB PO SCH (09:06)
[2021-08-12] MEDS: MULTIVITAMINS/MINERALS TAB PO SCH (09:06)
[2021-08-12] MEDS: CEFTRIAXONE 1 GM in SODIUM CHLORIDE 0.9% 50ML 50 ML IV SCH (20:50)
[2021-08-12] MEDS: Morphine 2mg Syringe 2 MG/ML SYR IV PRN (21:42)
[2021-08-13] VITALS (7 sets, daily range): BP systolic 112–142; BP diastolic 65–77
[2021-08-13 06:26] LABS: BASOPHILS # (AUTO) 0.1 (0.0-0.1); BASOPHILS % 1.4 % (0.0-1.0); EOSINOPHILS # (AUTO) 0.3 (0.0-0.4); EOSINOPHILS % 4.9 % (0.0-6.0); HEMATOCRIT 35.3 % (34.2-44.1); HEMOGLOBIN 10.8 g/dL (12.0-16.0); LYMPHOCYTES % 19.3 % (18.0-39.1); MEAN CORPUSCULAR HEMOGLOBIN 28.5 pg (28-32); MEAN CORPUSCULAR HGB CONC 30.6 g/dL (31-35); MEAN CORPUSCULAR VOLUME 93.1 fL (81-99); MONOCYTES # (AUTO) 0.5 (0.2-0.8); MONOCYTES % 10.6 % (4.4-11.3); NEUTROPHILS # (AUTO) 3.2 (2.1-6.9); NEUTROPHILS % 63.6 % (38.7-80.0); PLATELET COUNT 160 x10e3/uL (140-360); RED BLOOD COUNT 3.79 x10e6/uL (3.6-5.1); RED CELL DISTRIBUTION WIDTH 18.6 % (11.7-14.4)
[2021-08-13 07:13] LABS: ALANINE AMINOTRANSFERASE < 6 IU/L (0-55); ALBUMIN 2.8 g/dL (3.5-5.0); ALKALINE PHOSPHATASE 75 IU/L (40-150); ANION GAP 11.4 mmol/L (8-16); BLOOD UREA NITROGEN 28 mg/dL (7-26); BUN/CREATININE RATIO 22 (6-25); CALCIUM 8.2 mg/dL (8.4-10.2); CARBON DIOXIDE 23 mmol/L (22-29); CHLORIDE 110 mmol/L (98-107); CREATININE, SERUM 1.29 mg/dL (0.57-1.11); EST GLOMERULAR FILTRATION RATE 39 ML/MIN (60-); GLUCOSE 160 mg/dL (74-118); POTASSIUM 4.4 mmol/L (3.5-5.1); SODIUM 140 mmol/L (136-145)
[2021-08-13] MEDS: INSULIN REGULAR, HUMAN 100 UNIT/1 ML SQ SCH ×4 (08:30→20:50)
[2021-08-13] MEDS: SPIRONOLACTONE 25 MG TAB PO SCH (09:21)
[2021-08-13] MEDS: OXYBUTYNIN CHLORIDE 5 MG TAB PO SCH ×2 (09:22→17:35)
[2021-08-13] MEDS: MULTIVITAMINS/MINERALS TAB PO SCH (09:22)
[2021-08-13] MEDS: CARVEDILOL 3.125 MG TAB PO SCH ×2 (09:22→17:35)
[2021-08-13] MEDS: FUROSEMIDE 20 MG TAB PO SCH (09:22)
[2021-08-13] MEDS ORDERED: SODIUM CHLORIDE 0.9% 250ML 250 ML ONE (13:46)
[2021-08-13] MEDS ORDERED: LIDOCAINE HCL 1% LOCAL INJ 20 ML VIAL ONE (13:46)
[2021-08-13 19:47] LABS: FERRITIN 79.96 ng/mL (4.63-204.00)
[2021-08-13] MEDS: CEFTRIAXONE 1 GM in SODIUM CHLORIDE 0.9% 50ML 50 ML IV SCH (20:49)
[2021-08-13] MEDS ORDERED: BISACODYL 5 MG TAB EC PO ONE (22:45)
[2021-08-14] VITALS (13 sets, daily range): BP systolic 115–146; BP diastolic 66–82
[2021-08-14 05:03] LABS: BASOPHILS # (AUTO) 0.1 (0.0-0.1); BASOPHILS % 1.2 % (0.0-1.0); EOSINOPHILS # (AUTO) 0.2 (0.0-0.4); EOSINOPHILS % 4.8 % (0.0-6.0); HEMOGLOBIN 11.2 g/dL (12.0-16.0); LYMPHOCYTES # (AUTO) 0.8 (1.0-3.2); LYMPHOCYTES % 16.5 % (18.0-39.1); MEAN CORPUSCULAR HEMOGLOBIN 28.2 pg (28-32); MEAN CORPUSCULAR HGB CONC 30.3 g/dL (31-35); MEAN CORPUSCULAR VOLUME 93.2 fL (81-99); MONOCYTES # (AUTO) 0.5 (0.2-0.8); MONOCYTES % 9.5 % (4.4-11.3); NEUTROPHILS # (AUTO) 3.4 (2.1-6.9); NEUTROPHILS % 67.6 % (38.7-80.0); PLATELET COUNT 131 x10e3/uL (140-360); RED BLOOD COUNT 3.97 x10e6/uL (3.6-5.1); RED CELL DISTRIBUTION WIDTH 18.6 % (11.7-14.4)
[2021-08-14 07:07] LABS: ALBUMIN 2.9 g/dL (3.5-5.0); ANION GAP 12.4 mmol/L (8-16); CALCIUM 8.9 mg/dL (8.4-10.2); CREATININE, SERUM 1.32 mg/dL (0.57-1.11); POTASSIUM 4.4 mmol/L (3.5-5.1)
[2021-08-14] MEDS: INSULIN REGULAR, HUMAN 100 UNIT/1 ML SQ SCH ×4 (07:30→21:00)
[2021-08-14] MEDS: SPIRONOLACTONE 25 MG TAB PO SCH (09:34)
[2021-08-14] MEDS: CARVEDILOL 3.125 MG TAB PO SCH ×2 (09:34→17:44)
[2021-08-14] MEDS: OXYBUTYNIN CHLORIDE 5 MG TAB PO SCH ×2 (09:35→17:44)
[2021-08-14] MEDS: MULTIVITAMINS/MINERALS TAB PO SCH (09:35)
[2021-08-14] MEDS: FUROSEMIDE 20 MG TAB PO SCH (09:35)
[2021-08-14] MEDS ORDERED: POVIDONE IODINE 0.05% 0.05 % ML PO ONE (12:20)
[2021-08-14] MEDS ORDERED: PROPOFOL IV EMULSION 10 MG/ML 20 ML VIAL ONE (12:20)
[2021-08-14] MEDS ORDERED: LIDOCAINE HCL 2% LOCAL INJ 5 ML SDV VIAL INJ ONE (12:20)
[2021-08-14] MEDS ORDERED: MIDAZOLAM HCL 2 MG/2 ML VIAL ONE (12:40)
[2021-08-14] MEDS ORDERED: ONDANSETRON HCL 4 MG ORAL DISINTEGRATING TAB PO PRN (14:30)
[2021-08-14] MEDS ORDERED: FENTANYL CITRATE/PF 100MCG/2 ML INJ ONE (14:55)
[2021-08-14] MEDS: Morphine 2mg Syringe 2 MG/ML SYR IV PRN (17:40)
[2021-08-14] MEDS: CEFTRIAXONE 1 GM in SODIUM CHLORIDE 0.9% 50ML 50 ML IV SCH (21:00)
[2021-08-14] MEDS: MAGNESIUM HYDROXIDE 30 ML UDC PO SCH (21:30)
[2021-08-15] VITALS (9 sets, daily range): BP systolic 100–136; BP diastolic 54–79
[2021-08-15 05:05] LABS: BASOPHILS # (AUTO) 0.1 (0.0-0.1); BASOPHILS % 0.8 % (0.0-1.0); EOSINOPHILS # (AUTO) 0.1 (0.0-0.4); EOSINOPHILS % 1.8 % (0.0-6.0); HEMATOCRIT 37.2 % (34.2-44.1); HEMOGLOBIN 11.5 g/dL (12.0-16.0); LYMPHOCYTES # (AUTO) 0.9 (1.0-3.2); LYMPHOCYTES % 13.7 % (18.0-39.1); MEAN CORPUSCULAR HEMOGLOBIN 28.5 pg (28-32); MEAN CORPUSCULAR HGB CONC 30.9 g/dL (31-35); MEAN CORPUSCULAR VOLUME 92.3 fL (81-99); MONOCYTES # (AUTO) 0.7 (0.2-0.8); NEUTROPHILS # (AUTO) 4.5 (2.1-6.9); NEUTROPHILS % 72.4 % (38.7-80.0); PLATELET COUNT 177 x10e3/uL (140-360); RED BLOOD COUNT 4.03 x10e6/uL (3.6-5.1); RED CELL DISTRIBUTION WIDTH 18.3 % (11.7-14.4)
[2021-08-15 05:41] LABS: ALBUMIN 3.1 g/dL (3.5-5.0); ANION GAP 14.3 mmol/L (8-16); CALCIUM 9.1 mg/dL (8.4-10.2); CREATININE, SERUM 1.27 mg/dL (0.57-1.11); POTASSIUM 4.3 mmol/L (3.5-5.1)
[2021-08-15] MEDS: INSULIN REGULAR, HUMAN 100 UNIT/1 ML SQ SCH ×4 (08:01→20:21)
[2021-08-15] MEDS: CARVEDILOL 3.125 MG TAB PO SCH ×2 (08:29→17:29)
[2021-08-15] MEDS: SPIRONOLACTONE 25 MG TAB PO SCH (08:29)
[2021-08-15] MEDS: FUROSEMIDE 20 MG TAB PO SCH (08:29)
[2021-08-15] MEDS: OXYBUTYNIN CHLORIDE 5 MG TAB PO SCH ×2 (08:29→17:29)
[2021-08-15] MEDS: MULTIVITAMINS/MINERALS TAB PO SCH (08:29)
[2021-08-15] MEDS: Morphine 2mg Syringe 2 MG/ML SYR IV PRN ×2 (11:56→20:28)
[2021-08-15] MEDS: CEFTRIAXONE 1 GM in SODIUM CHLORIDE 0.9% 50ML 50 ML IV SCH (20:19)
[2021-08-15] MEDS: MAGNESIUM HYDROXIDE 30 ML UDC PO SCH (20:20)
[2021-08-16] VITALS (7 sets, daily range): BP systolic 87–132; BP diastolic 53–68
[2021-08-16 05:44] LABS: BASOPHILS # (AUTO) 0.1 (0.0-0.1); BASOPHILS % 1.2 % (0.0-1.0); EOSINOPHILS # (AUTO) 0.2 (0.0-0.4); EOSINOPHILS % 2.6 % (0.0-6.0); HEMATOCRIT 35.4 % (34.2-44.1); HEMOGLOBIN 11.1 g/dL (12.0-16.0); LYMPHOCYTES # (AUTO) 0.8 (1.0-3.2); LYMPHOCYTES % 13.3 % (18.0-39.1); MEAN CORPUSCULAR HEMOGLOBIN 28.6 pg (28-32); MEAN CORPUSCULAR HGB CONC 31.4 g/dL (31-35); MEAN CORPUSCULAR VOLUME 91.2 fL (81-99); MONOCYTES # (AUTO) 0.6 (0.2-0.8); MONOCYTES % 10.5 % (4.4-11.3); NEUTROPHILS # (AUTO) 4.1 (2.1-6.9); PLATELET COUNT 155 x10e3/uL (140-360); RED BLOOD COUNT 3.88 x10e6/uL (3.6-5.1); RED CELL DISTRIBUTION WIDTH 18.4 % (11.7-14.4)
[2021-08-16 06:12] LABS: ANION GAP 10.7 mmol/L (8-16); CALCIUM 8.4 mg/dL (8.4-10.2); CREATININE, SERUM 1.12 mg/dL (0.57-1.11); POTASSIUM 4.7 mmol/L (3.5-5.1)
[2021-08-16] MEDS: Morphine 2mg Syringe 2 MG/ML SYR IV PRN ×2 (06:17→19:40)
[2021-08-16] MEDS: INSULIN REGULAR, HUMAN 100 UNIT/1 ML SQ SCH ×4 (07:30→20:33)
[2021-08-16] MEDS: CARVEDILOL 3.125 MG TAB PO SCH ×2 (09:00→17:48)
[2021-08-16] MEDS: SPIRONOLACTONE 25 MG TAB PO SCH ×3 (09:00→21:00)
[2021-08-16] MEDS: OXYBUTYNIN CHLORIDE 5 MG TAB PO SCH ×2 (09:00→17:48)
[2021-08-16] MEDS: MULTIVITAMINS/MINERALS TAB PO SCH (09:00)
[2021-08-16] MEDS: FUROSEMIDE 20 MG TAB PO SCH (09:00)
[2021-08-16] MEDS ORDERED: BUPIVACAINE 0.25% 30ML SDV ONE (10:57)
[2021-08-16] MEDS ORDERED: SUGAMMADEX SODIUM 200 MG/2 ML VIAL IV ONE (11:55)
[2021-08-16] MEDS ORDERED: PROPOFOL IV EMULSION 10 MG/ML 20 ML VIAL ONE (12:22)
[2021-08-16] MEDS ORDERED: LIDOCAINE HCL 2% LOCAL INJ 5 ML SDV VIAL INJ ONE (12:22)
[2021-08-16] MEDS ORDERED: SEVOFLURANE INHAL SOLN 250 ML PEN BTL ONE (12:22)
[2021-08-16] MEDS ORDERED: ONDANSETRON HCL INJ 2MG/ML 2ML 2 MG/ML VIAL ONE (12:22)
[2021-08-16] MEDS ORDERED: ROCURONIUM BROMIDE 10 MG/ML 5ML VIAL IV ONE (12:22)
[2021-08-16] MEDS ORDERED: POVIDONE IODINE 0.05% 0.05 % ML PO ONE (12:22)
[2021-08-16] MEDS ORDERED: EPHEDRINE SULFATE INJ 50 MG/ML VIAL ONE (12:22)
[2021-08-16] MEDS: CEFTRIAXONE 1 GM in SODIUM CHLORIDE 0.9% 50ML 50 ML IV SCH (20:21)
[2021-08-16] MEDS: MAGNESIUM HYDROXIDE 30 ML UDC PO SCH (20:35)
[2021-08-17] VITALS: BP 94/59
[2021-08-17] MEDS: HYDROCODONE/APAP 7.5MG-325MG 1 EA TAB PO PRN ×3 (02:17→14:51)
[2021-08-17 04:00] VITALS: BP 91/52
[2021-08-17 05:03] LABS: BASOPHILS # (AUTO) 0.1 (0.0-0.1); BASOPHILS % 1.1 % (0.0-1.0); EOSINOPHILS # (AUTO) 0.1 (0.0-0.4); EOSINOPHILS % 1.7 % (0.0-6.0); HEMATOCRIT 35.6 % (34.2-44.1); HEMOGLOBIN 10.9 g/dL (12.0-16.0); LYMPHOCYTES # (AUTO) 0.7 (1.0-3.2); LYMPHOCYTES % 10.4 % (18.0-39.1); MEAN CORPUSCULAR HEMOGLOBIN 28.7 pg (28-32); MEAN CORPUSCULAR HGB CONC 30.6 g/dL (31-35); MEAN CORPUSCULAR VOLUME 93.7 fL (81-99); MONOCYTES # (AUTO) 0.8 (0.2-0.8); MONOCYTES % 12.3 % (4.4-11.3); NEUTROPHILS # (AUTO) 4.7 (2.1-6.9); PLATELET COUNT 160 x10e3/uL (140-360); RED CELL DISTRIBUTION WIDTH 18.2 % (11.7-14.4)
[2021-08-17 05:26] LABS: ALBUMIN 2.7 g/dL (3.5-5.0); ALBUMIN/GLOBULIN RATIO 0.9 (0.8-2.0); ANION GAP 15.8 mmol/L (8-16); CALCIUM 8.5 mg/dL (8.4-10.2); CREATININE, SERUM 1.34 mg/dL (0.57-1.11); POTASSIUM 4.8 mmol/L (3.5-5.1)
[2021-08-17] MEDS: INSULIN REGULAR, HUMAN 100 UNIT/1 ML SQ SCH ×3 (07:30→16:30)
[2021-08-17 08:00] VITALS: BP 91/52
[2021-08-17 08:54] VITALS: BP 122/74
[2021-08-17] MEDS: OXYBUTYNIN CHLORIDE 5 MG TAB PO SCH ×2 (09:00→16:39)
[2021-08-17] MEDS: MULTIVITAMINS/MINERALS TAB PO SCH (09:00)
[2021-08-17] MEDS ORDERED: IRON SUCROSE 100 MG in SODIUM CHLORIDE 0.9% 100 ML 100 ML IV SCH (09:00)
[2021-08-17] MEDS: CARVEDILOL 3.125 MG TAB PO SCH ×2 (09:00→16:39)
[2021-08-17] MEDS: SPIRONOLACTONE 25 MG TAB PO SCH ×2 (09:00→14:58)
[2021-08-17] MEDS: FUROSEMIDE 20 MG TAB PO SCH (09:00)
[2021-08-17] MEDS ORDERED: ULTRAM 50MG50 MG PO (11:22)
[2021-08-17 12:55] VITALS: BP 105/75
[2021-08-17 17:20] VITALS: BP 116/75
== END 2021-08-17 17:45 | disposition home or self-care (01) | DRG 421 ==
LOC: ER 19:19 → ERHOLD 22:04 → MED/SURG2 22:57 → OBSVTOIN 08-13 08:38 → INTOOBSV 08-13 08:39
PROVIDERS: ADMIT Internal Medicine; ATTEND Internal Medicine
PROC: 0W9G30Z Drainage of Peritoneal Cavity with Drainage Device, Percutaneous Approach (ICD-10-PCS; 2021-08-10)
PROC: 0PS43ZZ Reposition Thoracic Vertebra, Percutaneous Approach (ICD-10-PCS; 2021-08-14)
PROC: 0PU43JZ Supplement Thoracic Vertebra with Synthetic Substitute, Percutaneous Approach (ICD-10-PCS; 2021-08-14)
PROC: 0PB43ZX Excision of Thoracic Vertebra, Percutaneous Approach, Diagnostic (ICD-10-PCS; 2021-08-14)
PROC: 0FB14ZX Excision of Right Lobe Liver, Percutaneous Endoscopic Approach, Diagnostic (ICD-10-PCS; principal; 2021-08-16 11:30)
DX: K74.69 Other cirrhosis of liver (principal); R18.8 Other ascites; I13.0 Hypertensive heart and chronic kidney disease with heart failure and stage 1 through stage 4 chronic kidney disease, or unspecified chronic kidney disease; I50.22 Chronic systolic (congestive) heart failure; M80.88XA Other osteoporosis with current pathological fracture, vertebra(e), initial encounter for fracture; K75.81 Nonalcoholic steatohepatitis (NASH); E78.5 Hyperlipidemia, unspecified; E11.22 Type 2 diabetes mellitus with diabetic chronic kidney disease; Z96.649 Presence of unspecified artificial hip joint; N28.1 Cyst of kidney, acquired; N18.30 Chronic kidney disease, stage 3 unspecified; D64.9 Anemia, unspecified; Z20.822 Contact with and (suspected) exposure to COVID-19
CPT/HCPCS: 22513; 36415; 49083; 72146; 74176; 74470; 80048; 80053; 81001; 82040; 82150; 82607; 82728; 82746; 82948; 83540; 83690; 84157; 84466; 85025; 85610; 85730; 86304; 87070; 87086; 87205; 88112; 88305; 88307; 88311; 88342; 89051; 93005; 94799; 96372; 99251; 99284; G0378; J0696; J1756; J1817; J2001; J2250; J2270; J2405; J3010; J7040; J7050; J7799; U0002

== ENCOUNTER 2022-07-05 12:36 | Emergency (ER) | payer MEDICARE ==
[~2022-07-05] VITALS: Ht 162.6 cm; Wt 56.7 kg
[~2022-07-05 12:36] MED LIST changes: +SPIRONOLACTONE25 MG PO; +ULTRAM 50MG50 MG PO
[2022-07-05 13:37] LABS: BASOPHILS # (AUTO) 0.1 (0.0-0.1); BASOPHILS % 0.9 % (0.0-1.0); EOSINOPHILS # (AUTO) 0.1 (0.0-0.4); EOSINOPHILS % 1.9 % (0.0-6.0); HEMATOCRIT 43.5 % (34.2-44.1); HEMOGLOBIN 13.4 g/dL (12.0-16.0); LYMPHOCYTES # (AUTO) 0.8 (1.0-3.2); LYMPHOCYTES % 14.3 % (18.0-39.1); MEAN CORPUSCULAR HEMOGLOBIN 31.9 pg (28-32); MEAN CORPUSCULAR HGB CONC 30.8 g/dL (31-35); MEAN CORPUSCULAR VOLUME 103.6 fL (81-99); MONOCYTES # (AUTO) 0.2 (0.2-0.8); NEUTROPHILS # (AUTO) 4.2 (2.1-6.9); NEUTROPHILS % 78.7 % (38.7-80.0); PLATELET COUNT 139 x10e3/uL (140-360); RED CELL DISTRIBUTION WIDTH 13.5 % (11.7-14.4)
[2022-07-05 13:56] LABS: ALBUMIN 3.9 g/dL (3.5-5.0); ALBUMIN/GLOBULIN RATIO 1.1 (0.8-2.0); ALKALINE PHOSPHATASE 65 IU/L (40-150); ANION GAP 16.5 mmol/L (8-16); BLOOD UREA NITROGEN 36 mg/dL (7-26); BUN/CREATININE RATIO 24 (6-25); CALCIUM 9.2 mg/dL (8.4-10.2); CARBON DIOXIDE 22 mmol/L (22-29); CHLORIDE 110 mmol/L (98-107); CREATININE, SERUM 1.49 mg/dL (0.57-1.11); GLUCOSE 150 mg/dL (74-118); POTASSIUM 4.5 mmol/L (3.5-5.1); SODIUM 144 mmol/L (136-145)
[2022-07-05 14:04] LABS: ALANINE AMINOTRANSFERASE < 6 IU/L (0-55)
[2022-07-05 16:07] VITALS: BP 123/77
== END 2022-07-05 16:11 | disposition home or self-care (01) ==
LOC: ER 12:46 → EEVIPCON 12:46 → ER 16:11
DX: R06.02 Shortness of breath (principal); R18.8 Other ascites; I50.9 Heart failure, unspecified; E11.65 Type 2 diabetes mellitus with hyperglycemia; I10 Essential (primary) hypertension; Z86.718 Personal history of other venous thrombosis and embolism
CPT/HCPCS: 36415; 71045; 80053; 83880; 84484; 85025; 93005; 99284

== ENCOUNTER 2022-11-15 13:27 | Emergency (ER) | payer MEDICARE ==
[~2022-11-15] VITALS: Ht 162.6 cm; Wt 58.5 kg
[~2022-11-15 13:27] MED LIST changes: +ENTRESTO 24 MG1 EACH PO
[2022-11-15 13:30] VITALS: O2SAT 100
== END 2022-11-15 14:00 | disposition home or self-care (01) ==
LOC: ER 13:31
DX: R18.8 Other ascites (principal); K74.60 Unspecified cirrhosis of liver; Z98.890 Other specified postprocedural states; E11.9 Type 2 diabetes mellitus without complications; I50.9 Heart failure, unspecified; Z79.899 Other long term (current) drug therapy
CPT/HCPCS: 99283

== ENCOUNTER 2022-11-28 14:52 | Inpatient (IN) | payer MEDICARE ==
[~2022-11-28] VITALS: Ht 162.6 cm; Wt 58.5 kg
[2022-11-28 15:40] LABS: BASOPHILS # (AUTO) 0.1 (0.0-0.1); BASOPHILS % 0.7 % (0.0-1.0); EOSINOPHILS # (AUTO) 0.1 (0.0-0.4); HEMATOCRIT 41.3 % (34.2-44.1); LYMPHOCYTES # (AUTO) 0.9 (1.0-3.2); MEAN CORPUSCULAR HEMOGLOBIN 30.5 pg (28-32); MEAN CORPUSCULAR HGB CONC 31.5 g/dL (31-35); MEAN CORPUSCULAR VOLUME 96.9 fL (81-99); MONOCYTES # (AUTO) 0.4 (0.2-0.8); MONOCYTES % 6.1 % (4.4-11.3); NEUTROPHILS # (AUTO) 5.6 (2.1-6.9); NEUTROPHILS % 79.9 % (38.7-80.0); PLATELET COUNT 168 x10e3/uL (140-360); RED BLOOD COUNT 4.26 x10e6/uL (3.6-5.1); RED CELL DISTRIBUTION WIDTH 15.4 % (11.7-14.4)
[2022-11-28 15:48] LABS: INR 1.47; PROTHROMBIN TIME 18.3 seconds (11.9-14.5)
[2022-11-28] MEDS ORDERED: ALBUMIN 25% 12.5GM 50ML 100 ML IV ONE (16:01)
[2022-11-28 16:56] LABS: ALANINE AMINOTRANSFERASE 8 IU/L (0-55); ALBUMIN 3.8 g/dL (3.5-5.0); ALBUMIN/GLOBULIN RATIO 1.2 (0.8-2.0); ALKALINE PHOSPHATASE 73 IU/L (40-150); ANION GAP 16.7 mmol/L (8-16); BLOOD UREA NITROGEN 75 mg/dL (7-26); BUN/CREATININE RATIO 34 (6-25); CALCIUM 8.9 mg/dL (8.4-10.2); CARBON DIOXIDE 14 mmol/L (22-29); CHLORIDE 115 mmol/L (98-107); CREATININE, SERUM 2.21 mg/dL (0.57-1.11); GLUCOSE 140 mg/dL (74-118); SODIUM 139 mmol/L (136-145)
[2022-11-28 16:59] LABS: POTASSIUM 6.7 mmol/L (3.5-5.1)
[2022-11-28] MEDS ORDERED: DEXTROSE 50% SYRINGE 50 ML IV STA (17:03)
[2022-11-28] MEDS ORDERED: SODIUM BICARBONATE 8.4% INJ 50 ML SYR IV STA (17:03)
[2022-11-28] MEDS ORDERED: CALCIUM GLUC 1 G/50 ML NACL 50 ML IV ONE ×2 (17:12→17:15)
[2022-11-28] MEDS ORDERED: DEXTROSE 50% SYRINGE 50 ML IV ONE (17:12)
[2022-11-28] MEDS ORDERED: INSULIN REGULAR, HUMAN 100 UNIT/1 ML ONE (17:13)
[2022-11-28] MEDS ORDERED: INSULIN REGULAR, HUMAN 100 UNIT/1 ML IV ONE (17:15)
[2022-11-28] MEDS ORDERED: SOD POLYSTYRENE SULFONATE SUSP 15 GM/60 ML BTL PO ONE (17:15)
[2022-11-28] MEDS ORDERED: SODIUM CHLORIDE FLUSH 10 ML SYR INJ PRN (17:30)
[2022-11-28] MEDS ORDERED: ALBUTEROL SULF 0.083% NEB SOLN 3 ML NEB NEB STA (18:17)
[2022-11-28 18:25] VITALS: PULSE 56; RESP 20; O2SAT 100
[2022-11-28] MEDS ORDERED: FUROSEMIDE INJ 10 MG/ML 2 ML VIAL IV ONE (18:30)
[2022-11-28 18:51] LABS: ABG HCO3 15 mmol/L (22-26); ABG PCO2 30 mmHg (35-45); ABG PH 7.31 (7.35-7.45); ABG PO2 289 mmHg (80-105); ABG TCO2 16
[2022-11-28] MEDS: ONDANSETRON HCL INJ 2MG/ML 2ML 2 MG/ML VIAL IV PRN (20:27)
[2022-11-29] VITALS (8 sets, daily range): BP systolic 92–131; BP diastolic 54–59; PULSE 53–61; RESP 16–20; TEMP 97.5–99.3; O2SAT 97–100
[2022-11-29] MEDS ORDERED: AMIODARONE HCL200 MG PO (01:44)
[2022-11-29] MEDS ORDERED: ELIQUIS2.5 MG PO (01:44)
[2022-11-29 05:42] LABS: BASOPHILS # (AUTO) 0.1 (0.0-0.1); BASOPHILS % 0.9 % (0.0-1.0); EOSINOPHILS # (AUTO) 0.1 (0.0-0.4); LYMPHOCYTES # (AUTO) 0.8 (1.0-3.2); MEAN CORPUSCULAR HEMOGLOBIN 30.8 pg (28-32); MEAN CORPUSCULAR HGB CONC 31.6 g/dL (31-35); MEAN CORPUSCULAR VOLUME 97.4 fL (81-99); MONOCYTES # (AUTO) 0.5 (0.2-0.8); MONOCYTES % 7.2 % (4.4-11.3); NEUTROPHILS # (AUTO) 5.4 (2.1-6.9); NEUTROPHILS % 79.6 % (38.7-80.0); PLATELET COUNT 144 x10e3/uL (140-360); RED CELL DISTRIBUTION WIDTH 15.5 % (11.7-14.4)
[2022-11-29 06:11] LABS: ANION GAP 14.1 mmol/L (8-16); CALCIUM 8.7 mg/dL (8.4-10.2); CREATININE, SERUM 2.01 mg/dL (0.57-1.11); MAGNESIUM 2.7 MG/DL (1.3-2.1)
[2022-11-29 06:16] LABS: POTASSIUM 6.1 mmol/L (3.5-5.1)
[2022-11-29] MEDS ORDERED: SOD POLYSTYRENE SULFONATE SUSP 15 GM/60 ML BTL PO ONE (13:45)
[2022-11-29] MEDS: SODIUM BICARBONATE 650 MG TAB PO SCH (18:37)
[2022-11-29] MEDS ORDERED: FUROSEMIDE INJ 10 MG/ML 2 ML VIAL IV ONE (19:35)
[2022-11-30 05:52] LABS: BASOPHILS # (AUTO) 0.1 (0.0-0.1); BASOPHILS % 1.3 % (0.0-1.0); EOSINOPHILS # (AUTO) 0.1 (0.0-0.4); EOSINOPHILS % 2.6 % (0.0-6.0); HEMATOCRIT 35.4 % (34.2-44.1); HEMOGLOBIN 11.2 g/dL (12.0-16.0); LYMPHOCYTES # (AUTO) 0.8 (1.0-3.2); LYMPHOCYTES % 14.4 % (18.0-39.1); MEAN CORPUSCULAR HEMOGLOBIN 30.2 pg (28-32); MEAN CORPUSCULAR HGB CONC 31.6 g/dL (31-35); MEAN CORPUSCULAR VOLUME 95.4 fL (81-99); MONOCYTES # (AUTO) 0.5 (0.2-0.8); MONOCYTES % 8.5 % (4.4-11.3); NEUTROPHILS # (AUTO) 3.9 (2.1-6.9); PLATELET COUNT 156 x10e3/uL (140-360); RED BLOOD COUNT 3.71 x10e6/uL (3.6-5.1); RED CELL DISTRIBUTION WIDTH 15.6 % (11.7-14.4)
[2022-11-30 06:35] LABS: ANION GAP 10.6 mmol/L (8-16); CALCIUM 8.2 mg/dL (8.4-10.2); CREATININE, SERUM 1.58 mg/dL (0.57-1.11); POTASSIUM 5.6 mmol/L (3.5-5.1)
[2022-11-30 08:16] VITALS: BP 108/61; PULSE 57; RESP 18; TEMP 97.7; O2SAT 98
[2022-11-30 08:25] VITALS: BP 108/61; PULSE 57; RESP 18; TEMP 97.7; O2SAT 98
[2022-11-30] MEDS: SODIUM BICARBONATE 650 MG TAB PO SCH ×2 (09:39→17:25)
[2022-11-30] MEDS: APIXAB 2.5 MG TABLET PO SCH ×2 (09:39→17:25)
[2022-11-30] MEDS: ONDANSETRON HCL INJ 2MG/ML 2ML 2 MG/ML VIAL IV PRN (11:34)
[2022-11-30 12:23] VITALS: BP 119/70; PULSE 60; RESP 18; TEMP 98.6; O2SAT 100
[2022-11-30 16:01] VITALS: BP 121/64; PULSE 59; RESP 17; TEMP 98.4; O2SAT 99
[2022-11-30 20:00] VITALS: BP 103/50; PULSE 60; RESP 18; TEMP 97.7; O2SAT 100
[2022-11-30 21:00] VITALS: BP 103/50; PULSE 60; RESP 18; TEMP 97.7; O2SAT 100
[2022-12-01] VITALS (7 sets, daily range): BP systolic 92–115; BP diastolic 62–69; PULSE 59–95; RESP 18–19; TEMP 97–98.7; O2SAT 95–100
[2022-12-01 06:16] LABS: BASOPHILS # (AUTO) 0.1 (0.0-0.1); BASOPHILS % 0.9 % (0.0-1.0); EOSINOPHILS # (AUTO) 0.2 (0.0-0.4); EOSINOPHILS % 3.6 % (0.0-6.0); HEMATOCRIT 35.6 % (34.2-44.1); HEMOGLOBIN 11.4 g/dL (12.0-16.0); LYMPHOCYTES # (AUTO) 0.9 (1.0-3.2); LYMPHOCYTES % 16.3 % (18.0-39.1); MEAN CORPUSCULAR HEMOGLOBIN 30.5 pg (28-32); MEAN CORPUSCULAR VOLUME 95.2 fL (81-99); MONOCYTES # (AUTO) 0.5 (0.2-0.8); MONOCYTES % 8.3 % (4.4-11.3); NEUTROPHILS # (AUTO) 3.9 (2.1-6.9); NEUTROPHILS % 70.7 % (38.7-80.0); PLATELET COUNT 145 x10e3/uL (140-360); RED BLOOD COUNT 3.74 x10e6/uL (3.6-5.1); RED CELL DISTRIBUTION WIDTH 15.5 % (11.7-14.4)
[2022-12-01 06:46] LABS: ANION GAP 10.5 mmol/L (8-16); CALCIUM 8.2 mg/dL (8.4-10.2); CREATININE, SERUM 1.4 mg/dL (0.57-1.11); POTASSIUM 5.5 mmol/L (3.5-5.1)
[2022-12-01] MEDS: APIXAB 2.5 MG TABLET PO SCH ×2 (08:58→16:28)
[2022-12-01] MEDS: SODIUM BICARBONATE 650 MG TAB PO SCH ×2 (08:58→16:28)
[2022-12-02] VITALS (8 sets, daily range): BP systolic 93–118; BP diastolic 46–64; PULSE 58–73; RESP 16–18; TEMP 97.8–98.3; O2SAT 98–100
[2022-12-02 05:49] LABS: BASOPHILS # (AUTO) 0.1 (0.0-0.1); BASOPHILS % 0.9 % (0.0-1.0); EOSINOPHILS # (AUTO) 0.2 (0.0-0.4); HEMATOCRIT 35.2 % (34.2-44.1); HEMOGLOBIN 11.2 g/dL (12.0-16.0); LYMPHOCYTES # (AUTO) 0.8 (1.0-3.2); LYMPHOCYTES % 14.4 % (18.0-39.1); MEAN CORPUSCULAR HEMOGLOBIN 30.4 pg (28-32); MEAN CORPUSCULAR HGB CONC 31.8 g/dL (31-35); MEAN CORPUSCULAR VOLUME 95.4 fL (81-99); MONOCYTES # (AUTO) 0.4 (0.2-0.8); MONOCYTES % 8.3 % (4.4-11.3); NEUTROPHILS # (AUTO) 3.8 (2.1-6.9); PLATELET COUNT 147 x10e3/uL (140-360); RED BLOOD COUNT 3.69 x10e6/uL (3.6-5.1); RED CELL DISTRIBUTION WIDTH 15.5 % (11.7-14.4)
[2022-12-02 06:05] LABS: ALBUMIN 2.9 g/dL (3.5-5.0); ALBUMIN/GLOBULIN RATIO 1.2 (0.8-2.0); ALKALINE PHOSPHATASE 53 IU/L (40-150); ANION GAP 10.2 mmol/L (8-16); BLOOD UREA NITROGEN 35 mg/dL (7-26); BUN/CREATININE RATIO 26 (6-25); CALCIUM 8.3 mg/dL (8.4-10.2); CARBON DIOXIDE 22 mmol/L (22-29); CHLORIDE 113 mmol/L (98-107); CREATININE, SERUM 1.35 mg/dL (0.57-1.11); GLUCOSE 101 mg/dL (74-118); POTASSIUM 5.2 mmol/L (3.5-5.1); SODIUM 140 mmol/L (136-145)
[2022-12-02 06:20] LABS: ALANINE AMINOTRANSFERASE < 6 IU/L (0-55)
[2022-12-02] MEDS: APIXAB 2.5 MG TABLET PO SCH ×2 (09:03→18:45)
[2022-12-02] MEDS: SODIUM BICARBONATE 650 MG TAB PO SCH ×2 (09:03→18:45)
[2022-12-02] MEDS: LACTULOSE SYRUP 20 GM/30 ML UDC PO SCH (15:17)
[2022-12-02 16:42] LABS: ANION GAP 11.4 mmol/L (8-16); CALCIUM 8.5 mg/dL (8.4-10.2); CREATININE, SERUM 1.41 mg/dL (0.57-1.11)
[2022-12-02 16:45] LABS: POTASSIUM 5.4 mmol/L (3.5-5.1)
[2022-12-03 00:04] VITALS: BP 112/58; PULSE 66; RESP 18; TEMP 98.7; O2SAT 100
[2022-12-03 04:28] VITALS: BP 109/61; PULSE 66; RESP 16; TEMP 97.9; O2SAT 99
[2022-12-03 06:24] LABS: ANION GAP 9.1 mmol/L (8-16); CALCIUM 8.4 mg/dL (8.4-10.2); CREATININE, SERUM 1.24 mg/dL (0.57-1.11); POTASSIUM 5.1 mmol/L (3.5-5.1)
[2022-12-03 07:38] VITALS: BP 99/57; PULSE 62; RESP 17; TEMP 97.6; O2SAT 100
[2022-12-03] MEDS: SODIUM BICARBONATE 650 MG TAB PO SCH (08:29)
[2022-12-03] MEDS: APIXAB 2.5 MG TABLET PO SCH (08:29)
[2022-12-03] MEDS: LACTULOSE SYRUP 20 GM/30 ML UDC PO SCH (08:30)
[2022-12-03 09:00] VITALS: BP 99/57; PULSE 62; RESP 17; TEMP 97.6; O2SAT 100
[2022-12-03] MEDS: ONDANSETRON HCL INJ 2MG/ML 2ML 2 MG/ML VIAL IV PRN (09:32)
[2022-12-03 11:15] VITALS: BP 96/54; PULSE 64; RESP 20; TEMP 97.9; O2SAT 98
[2022-12-03] MEDS ORDERED: ONDANSETRON HCL 4 MG ORAL DISINTEGRATING TAB PO PRN (15:15)
== END 2022-12-03 15:17 | disposition home or self-care (01) | DRG 433 ==
LOC: ER 15:01 → ERHOLD 17:22 → MED/SURG2 21:19
PROVIDERS: ADMIT Internal Medicine; ATTEND Internal Medicine
PROC: 0W9G3ZZ Drainage of Peritoneal Cavity, Percutaneous Approach (ICD-10-PCS; principal; 2022-11-28)
PROC: 02HV33Z Insertion of Infusion Device into Superior Vena Cava, Percutaneous Approach (ICD-10-PCS; 2022-11-30)
PROC: B548ZZA Ultrasonography of Superior Vena Cava, Guidance (ICD-10-PCS; 2022-11-30)
DX: K74.60 Unspecified cirrhosis of liver (principal); E87.20 Acidosis, unspecified; I13.0 Hypertensive heart and chronic kidney disease with heart failure and stage 1 through stage 4 chronic kidney disease, or unspecified chronic kidney disease; R18.8 Other ascites; I48.20 Chronic atrial fibrillation, unspecified; I50.22 Chronic systolic (congestive) heart failure; N18.4 Chronic kidney disease, stage 4 (severe); E11.22 Type 2 diabetes mellitus with diabetic chronic kidney disease; E78.5 Hyperlipidemia, unspecified; E87.5 Hyperkalemia; Z96.641 Presence of right artificial hip joint; Z79.01 Long term (current) use of anticoagulants
CPT/HCPCS: 0223U; 36415; 36569; 36600; 49083; 71045; 74018; 74470; 76705; 80048; 80053; 82088; 82140; 82533; 82805; 82948; 83735; 83880; 84100; 84132; 84484; 85025; 85610; 93005; 94799; 99284; C1729; J1940; J2405; J7799